=== PATIENT | female | born 1965 | race Caucasian/White ===

== ENCOUNTER → 2016-04-14 08:31 | Outpatient (CLI) | payer MEDICAID ==
[2015-12-01 12:31] VITALS: BMI 47.3
[~2016-04-14 08:31] MED LIST: ASPIRIN EC81 MG PO; ATIVAN1 MG PO; CIPROFLOXACIN750 MG PO; COREG6.25 MG PO; DILANTIN100 MG PO; GLUCOPHAGE1000 MG PO; GLUCOTROL 5 MG T5 MG PO; LANTUS INSULIN10 ML SC; NORCO 10/325 TA1 TA1 PO; PERCOCET 5-3251 TAB PO; ROBAXIN500 MG PO; TRULICITY0.75 MG/0. SC; TYLENOL #4 W/CO1 TAB PO; XANAX2 MG PO; ZESTORETIC 20/21 TAB PO
== END | disposition home or self-care (01) ==
LOC: D.CT 08:31
DX: R05 Cough (principal)

== ENCOUNTER → 2016-06-27 10:24 | Outpatient (CLI) | payer OTHER ==
[2015-12-01 12:31] VITALS: BMI 47.3
== END | disposition home or self-care (01) ==
LOC: D.RT 10:24
DX: Z02.71 Encounter for disability determination (principal)

== ENCOUNTER → 2017-07-25 08:14 | Outpatient (CLI) | payer MEDICAID ==
[2015-12-01 12:31] VITALS: BMI 47.3
== END | disposition home or self-care (01) ==
LOC: D.CT 08:14
DX: R10.9 Unspecified abdominal pain (principal)

== ENCOUNTER → 2018-07-06 09:04 | Outpatient (CLI) | payer MEDICAID ==
[2015-12-01 12:31] VITALS: BMI 47.3
== END | disposition home or self-care (01) ==
LOC: D.HCCARDIO 09:00
PROVIDERS: ATTEND Internal Medicine Cardiovascular Disease
DX: I25.119 Atherosclerotic heart disease of native coronary artery with unspecified angina pectoris (principal)

== ENCOUNTER 2018-07-19 06:59 | Outpatient (CLI) | payer MEDICAID ==
[~2018-07-19] VITALS: Ht 157.5 cm; Wt 115.0 kg
--- NOTE | ~2018-07-19 | HEMODYNAMI ---
PATIENT:ELI ABRAHAM MEDICAL RECORD: [id number] : 63 LOCATION:[facility] ADMISSION DATE: 07/19/18 Generatedon:07/19/201810:21 Patient name: ELI ABRAHAM Patient #: [id number] SSN: : 1965 Date of study: 07/19/2018 Page: Of Hemodynamic Procedure Report Patient Data Patient Demographics Procedure consent was obtained First Name: ELI Gender: Female Last Name: LEIGH : 1965 Middle Initial: GARRETT Age: 52 year(s) Patient #: [id number] Race: Additional ID: [id number] Contact details Address: [address] State: [place] City: [place] Zip code: [address] Past Medical History Allergies Allergen Reaction Date Comments Reported Other 12/01/2015 Dilaudid,PCN,Erythromycin,Z-Pack,Tramadol. allergy Admission Admission Data Admission Date: 07/19/2018 Admission Time: 6:59 Procedure Procedure Types Cath Procedure Diagnostic Procedure [facility] w/Coronaries Sedation Charges Moderate Sedation up to 15 minutes Procedure Description Procedure Date Procedure Date: 07/19/2018 Procedure Start Time: 10:02 Procedure End Time: 10:16 Procedure Staff Name Function Jaswinder Pike MD Performing Physician Tawana Roger RT Monitor Sal Schmitz RT Scrub Jr Streeter RN Nurse Procedure Data Cath Procedure Fluoroscopy Diagnostic fluoroscopy Total fluoroscopy Time: 1.9 time: 1.9 min min Diagnostic fluoroscopy Total fluoroscopy dose: 902 dose: 902 mGy mGy Contrast Material Contrast Material Type Amount (ml) Isovue 300 79 Entry Location Entry Primary Successful Side Size Upsize Upsize Entry Closure Succes sful Closure Location (Fr) 1 (Fr) 2 (Fr) Remarks Device Remarks Femoral Right 5 Fr Exoseal artery Estimated blood loss: 5 ml Diagnostic catheters Device Type Used For End Catheter Placement MULTIPACK JL 4.0 5Fr Left Coronary catheter Angiography MULTIPACK 3DRC 5Fr Right Coronary catheter Angiography MULTIPACK Pigtail 5 Fr LV Angiography catheter Procedure Complications No complications Procedure Medications Medication Administration Route Dosage 0.9% NaCl I.V. 100 ml/hr Oxygen etCO2 Nasal cannula 2 l/min Heparin Flush Bag added to field 2 bags (1000units/500ml NS) Lidocaine 2% added to field 20 Versed I.V. 1 mg Fentanyl I.V. 50 mcg Versed I.V. 1 mg Fentanyl I.V. 50 mcg Versed I.V. 1 mg Fentanyl I.V. 50 mcg Fentanyl I.V. 50 mcg Hemodynamics Rest Heart Rate: 91 (bpm) Pressure Samples Time Site Value (mmHg) Purpose Heart Use Rate(bpm) 10:13 LV 174/27,45 Snapshot 116 Gradients Valve Time Site Site Mean SEP/DFP Peak To Heart Use 1 2 (mmHg) (sec/min) Peak Rate (mmHg) (bpm) Aortic 10:14 LV AO 115 Snapshots Pre Cath Intra NCS Post Cath Vital Signs Time Heart Resp SPO2 etCO2 NIBP (mmHg) Rhythm Pain Sedation Rate (ipm) (%) (mmHg) Status Level (bpm) 9:47:10 100 13 93 0 131/80(110) NSR 0 (11) 10(A) , No pain 9:51:30 102 16 95 42.2 128/75(115) NSR 0 (11) 10(A) , No pain 9:58:18 106 13 94 43.7 129/78(114) NSR 0 (11) 10(A) , No pain 10:03:07 111 16 95 44.4 127/81(102) NSR 0 (11) 10(A) , No pain 10:07:19 111 26 98 42.2 127/77(103) NSR 0 (11) 10(A) , No pain 10:11:33 108 14 96 44.4 126/74(101) NSR 0 (11) 10(A) , No pain 10:15:47 116 15 96 46.6 132/69(84) NSR 0 (11) 10(A) , No pain Medications Time Medication Route Dose Verified Delivered Reason Notes Eff ectiveness by by 9:49:19 0.9% NaCl I.V. 100 Jr Jr Per ml/hr Syl raza RN RN 9:49:31 Oxygen etCO2 2 Jr Jr for low 02 Nasal l/min Lorigan Lorigan sats cannula RN RN 9:49:42 Heparin Flush added 2 Jr Jr used for Bag to bags Lorigan Lorigan procedure (1000units/500ml field RN RN NS) 9:49:52 Lidocaine 2% added 20ml Jr Jr for local to vial Lorigan Lorigan anesthetic field RN RN 9:50:02 Versed I.V. 1 mg Jr Jr for Lorigan Lorigan sedation RN RN 9:50:09 Fentanyl I.V. 50 Jr Jr for mcg Lorigan Lorigan sedation RN RN 9:57:38 Versed I.V. 1 mg Jr Jr for Lorigan Lorigan sedation RN RN 9:57:44 Fentanyl I.V. 50 Jr Jr for mcg Lorigan Lorigan sedation RN RN 10:06:03 Versed I.V. 1 mg Jr Jr for Lorigan Lorigan sedation RN RN 10:06:08 Fentanyl I.V. 50 Jr Jr for mcg Lorigan Lorigan sedation RN RN 10:17:22 Fentanyl I.V. 50 Jr Jr for mcg Lorigan Lorigan sedation RN yield improvement engineer Log Time Note 9:24:31 Diagnostic Cath Status : Elective 9:25:28 Sal Schmitz RT(R) sent for patient. Start room use. 9:25:29 Time tracking: Regular hours (M-F 7:00 - 5:00) 9:25:34 Plan of Care:Hemodynamics will remain stable., Cardiac rhythm will remain stable., Comfort level will be maintained., Respiratory function will remain adequate., Patient/ family verbilizes understanding of procedure., Procedure tolerated without complication., Recovers from procedure without complications.. 9:38:30 Patient received from Pre/Post Procedure Room to CCL 2 Alert and oriented. Tansferred to table in Supine position. 9:38:32 Warm blankets applied, and mundo hugger turned on for patient comfort. 9:38:32 Correct patient and procedure confirmed by team. 9:38:33 Signed procedure consent form obtained from patient. 9:38:34 ECG and BP/O2 sat monitors applied to patient. 9:46:00 Vital chart was started 9:46:02 Baseline sample Acquired. 9:46:07 Rhythm: sinus rhythm 9:46:08 Full Disclosure recording started 9:46:12 H&P Date Dictated: 07/19/2018 Within 30 days and on chart., H&P Addendum completed by physician on day of procedure. (MUST COMPLETE FOR ALL OUTPATIENTS). 9:46:14 Pre-procedure instructions explained to patient. 9:46:14 Pre-op teaching completed and patient verbalized understanding. 9:46:15 Family in waiting room. 9:46:18 Patient NPO since Midnight. 9:46:20 Is the patient allergic to Iodine/contrast media? No. 9:46:21 Was the patient premedicated? No 9:46:23 Is patient on blood thinner?No 9:46:24 Patient diabetic? Yes. 9:46:25 If diabetic: On Metformin? No 9:46:29 Previous problem with sedation/anesthesia? No ? 9:46:30 Snore? Yes 9:46:31 Sleep apnea? No 9:46:32 Deviated septum? No 9:46:33 Opens mouth fully? Yes 9:46:34 Sticks out tongue? Yes 9:46:38 Airway obstruction? Yes COPD 9:46:41 Dentures? No ? 9:46:44 Pre procedure: right dorsailis pedis pulse 2+ Normal; easily identifiable; not easily obliterated 9:46:46 Pre procedure: left dorsailis pedis pulse 2+ Normal; easily identifiable; not easily obliterated 9:46:55 Patient pain scale 0/10 ?. 9:47:04 IV patent on arrival in right antecubital with 0.9% NaCl at KVO. 9:47:07 Lab results completed and on chart. 9:47:11 Right groin area was prepped with chlora-prep and draped in sterile fashion 9:47:12 Alarms reviewed by R. N. 9:47:12 Sharps counted by scrub and verified by R.N. 9:47:13 Physician arrived 9:47:14 --------ALL STOP TIME OUT------ 9:47:14 Final Timeout: patient, procedure, and site verified with staff and physician. All members of the team are in agreement. 9:47:15 Right groin site verified by team. 9:47:19 Maximum allowable Isovue 300 dose 300ml. Physician notified. (300ml for normal creatinines. For patients with creatinine of 1.7 or higher multiply weight(kg) x 5 divided by creatinine.) 9:47:23 Fire Safety Assessment: A--An alcohol-based skin anteseptic being used preoperatively., C--Open oxygen or nitrous oxide is being used., D--An ESU, laser, or fiber-optic light is being used. 9:47:26 Physical assessment completed. ASA score P 2 - A patient with mild systemic disease as per Jaswinder Pike MD. 9:47:30 Sedation plan: IV Moderate Sedation Medication:Versed, Fentanyl 9:49:19 0.9% NaCl 100 ml/hr I.V. was administered by Jr Streeter RN; Per physician; 9:49:31 Oxygen 2 l/min etCO2 Nasal cannula was administered by Jr Streeter RN; for low 02 sats; 9:49:42 Heparin Flush Bag (1000units/500ml NS) 2 bags added to field was administered by Jr Streeter RN; used for procedure; 9:49:52 Lidocaine 2% 20ml vial added to field was administered by Jr Streeter RN; for local anesthetic; 9:50:02 Versed 1 mg I.V. was administered by Jr Streeter RN; for sedation; 9:50:09 Fentanyl 50 mcg I.V. was administered by Jr Streeter RN; for sedation; 9:52:55 Use device set Femoral Dx 9:52:56 ACIST Syringe (49782) opened to sterile field. 9:52:56 Bag Decanter () opened to sterile field. 9:52:57 Medline Cath Pack ([id number]) opened to sterile field. 9:52:57 DIAGNOSTIC WIRE .035 260cm J wire (036972) opened to sterile field. 9:52:58 ACIST Hand Control (90001) opened to sterile field. 9:52:59 ACIST Manifold (02266) opened to sterile field. 9:52:59 DIAGNOSTIC Multipack 5Fr catheter set ([id number]) opened to sterile field. 9:53:00 Tegaderm 4 x 4 (1626W) opened to sterile field. 9:53:00 SHEATH 5FR [place] ([id number]) opened to sterile field. 9:57:38 Versed 1 mg I.V. was administered by Jr Streeter RN; for sedation; 9:57:44 Fentanyl 50 mcg I.V. was administered by Jr Streeter RN; for sedation; 10:02:20 Procedure started. 10:02:24 Local anesthetic to right femoral artery with Lidocaine 2% by Jaswinder Pike MD.INITIAL ACCESS ONLY 10:02:35 A 5 Fr sheath was inserted into the Right Femoral artery 10:06:03 Versed 1 mg I.V. was administered by Jr Streeter RN; for sedation; 10:06:04 A MULTIPACK JL 4.0 5Fr catheter was advanced over the wire and used for Left Coronary Angiography. 10:06:08 Fentanyl 50 mcg I.V. was administered by Jr Streeter RN; for sedation; 10:06:52 LCA angiography performed. 10:06:55 Injector settings: Ml/sec: 3, Volume: 6, 10:10:21 Catheter removed. 10:10:31 A MULTIPACK 3DRC 5Fr catheter was advanced over the wire and used for Right Coronary Angiography. 10:10:41 RCA angiography performed. 10:10:44 Injector settings: Ml/sec: 3, Volume: 6, 10:12:17 Catheter removed. 10:12:29 A MULTIPACK Pigtail 5 Fr catheter was advanced over the wire and used for LV Angiography. 10:13:38 LV hemodynamics recorded. 10:13:39 LV gram done using NEWMAN 10:13:41 Injector settings: Ml/sec: 5, Volume: 15, 10:13:51 EF : 60 % 10:14:12 Catheter removed. 10:14:32 Sheath removed intact; hemostasis achieved with Exoseal to the Right Femoral artery. 10:14:36 Procedure ended.(Physican Out) 10:14:54 Fluoroscopy time 01.90 minutes. 10:14:59 Flurop Dose total: 902 10:14:59 Fluoroscopy dose: 902 mGy 10:15:08 Contrast amount:Isovue 300 79ml. 10:15:27 Sharps counted by scrub and verified by R.N. 10:15:28 Insertion/operative site no bleeding no hematoma. 10:15:31 Post-op/insertion site Right Femoral artery dressed using a 4 x 4 and Tegaderm. 10:15:34 Post right femoral artery:stable 10:15:36 Post Procedure Pulses reassessed and unchanged 10:15:39 Post procedure rhythm: unchanged. 10:15:42 Estimated blood loss: 5 ml 10:15:43 Post procedure instruction explained to patient.Patient verbalizes understanding. 10:15:43 Patient needs reinforcement of post procedure teaching. 10:16:01 Procedure type changed to Cath procedure, Diagnostic procedure, LHC, LHC w/Coronaries, Sedation Charges, Moderate Sedation up to 15 minutes 10:16:03 Procedure and supply charges have been captured, reviewed, submitted and are correct. 10:16:07 Procedure Complication : No complications 10:16:22 Vital chart was stopped 10:16:23 See physician's report for complete and final results. 10:16:40 Report given to Pre/Post Procedure Room. 10:16:43 Patient transfered to Pre/Post Procedure Room with Stretcher. 10:16:46 Procedure ended. 10:16:46 Full Disclosure recording stopped 10:16:50 End room use (Document Last) 10:17:22 Fentanyl 50 mcg I.V. was administered by Jr Streeter RN; for sedation; Device Usage Item Name Manufacture Quantity Catalog Hospital Part Current Minimal L ot# / Number Charge Number Stock Stock Serial# Code ACIST Acist 1 [id number] [id number] 432759 181227 20 Syringe Medical (05345) Systems Inc Bag Microtek 1 2001S 388716 83336 [id number] 5 Decanter Medical Inc. () Medline Medline 1 [id number] 720344 61767 468844 5 Cath Pack ([id number]) DIAGNOSTIC St Sandip 1 667767 521228 619889 411907 30 WIRE .035 260cm J wire (254368) ACIST Hand Acist 1 67360 988320 328927 410246 5 Control Medical (94112) Systems Inc ACIST Acist 1 37561 778243 507611 197206 5 Manifold Medical (34094) Systems Inc DIAGNOSTIC Cardinal 1 [id number] 023562 65001 791483 30 Multipack Health 5Fr catheter set (IY3348) Tegaderm 4 3M 1 1626W 432772 258763 563984 5 x 4 (1626W) SHEATH 5FR Terumo 1 [id number] 449294 624013 242782 5 [place] (NLV801) MULTIPACK Cardinal 1 [id number] 5 JL 4.0 5Fr Health catheter MULTIPACK Cardinal 1 268436 5 3DRC 5Fr Health catheter MULTIPACK Cardinal 1 488714 5 Pigtail 5 Health Fr catheter Signature Audit [place] Stage Time Signature Unsigned Intra-Procedure 07/19/2018 Tawana Roger 10:21:13 AM RT(R) Signatures Monitor : Tawana Roger RT Signature : Date : Time : [place] [id number] [place] [address]
[2018-07-19] MEDS ORDERED: VICTOZA0.6 MG/0.1 SQ (07:20)
[2018-07-19] MEDS ORDERED: HUMALOG 30100 UNITS/ SC (07:20)
[2018-07-19] MEDS ORDERED: PROAIR INH (07:21)
[2018-07-19 07:29] VITALS: BP 132/78; Ht 157.5 cm; Wt 115.0 kg
[2018-07-19 08:13] LABS: CALCIUM 9.6 mg/dL (8.5-10.1); CARBON DIOXIDE 30.1 mmol/L (21.0-32.0); CREATININE - SERUM 0.9 mg/dL (0.6-1.3); POTASSIUM - SERUM 4.1 mmol/L (3.5-5.1)
[2018-07-19 08:15] LABS: BASOPHILS 0.2 % (0-2); EOSINOPHILS 1.9 % (0-7); HEMATOCRIT 43.3 % (36.0-48.0); HEMOGLOBIN 14.9 g/dL (12-16); IMMATURE GRANULOCYTES 0.3 % (0-5); LYMPHOCYTES 30.4 % (15-50); MCH 29.4 pg (26.0-34.0); MCHC 34.4 g/dL (31.0-37.0); MCV 85.4 fL (80.0-100.0); MEAN PLATELET VOLUME 11.7 fL (7.4-10.4); MONOCYTES 8.4 % (2-11); NEUTROPHILS 58.8 % (40-80); PLATELET COUNT 156 10x3/uL (130-400); RBC 5.07 10x6/uL (4.00-5.40); RDW 13.5 % (11.5-14.5); WBC 8.9 10x3/uL (4.8-10.8)
--- NOTE | 2018-07-19 08:39 | NUR ---
DR MAR HAS BEEN NOTIFIED OF CRITICAL GLUCOSE OF 539, ORDER RECEIVED FOR HUMULIN R 10 UNITS QS NOW, AND THIS HAS BEEN GIVEN SQ TO RIGHT UPPER QUADRANT OF ABDOMEN.
--- NOTE | 2018-07-19 09:35 | NUR ---
BLOOD SUGAR RECHECKED, IS 482, HEATHER NAJERA HERE TO TRANSPORT PT TO CLIMBING GUIDE. STATES HE WILL NOTIFY DR MAR OF ELEVATED BLOOD SUGAR AND WILL RECHECK THIS IN CLIMBING GUIDE.
--- NOTE | 2018-07-19 11:13 | NUR ---
1050 PT SLEEPING, AWAKENS EASILY TO VERBAL STIMULI. DENIES ANY C/O. MALCOM PO FLUIDS WITH NO NAUSEA. DR MAR NOTIFIED OF FSBS 478, NEW ORDER RECEIVED. SINUS TACHYCARDIA, RATE OF 107, DENIES ANY C/O CHEST PAIN. DRESSING IS CDI TO RIGHT GROIN, AREA IS SOFT AND NONTENDER. PEDAL PULSES PALPABLE. HOB IS FLAT, AT BEDSIDE, CALL LIGHT IN REACH.
--- NOTE | 2018-07-19 11:27 | NUR ---
DRESSING CDI, PT IS AWAKE AND DENIES ANY C/O. PEDAL PULSES PALPABLE. HOB IS FLAT, VSS. AT BEDSIDE.
--- NOTE | 2018-07-19 12:02 | NUR ---
VSS, DRESSING CDI, RESP WITH EASE. PEDAL PULSES PALPABLE. DR MAR HAS ROUNDED, PT DENIES NEEDS AT THIS TIME.
--- NOTE | 2018-07-19 12:20 | NUR ---
FSBS 375, PT ALERT AND DENIES ANY C/O. DRESSING CDI, PULSES PALPABLE. PT HAS VOIDED QS USING BEDPAN. RESP WITH EASE ON ROOM AIR. HOB ELEVATED 30 DEGREES AND SANDWICH SERVED.
--- NOTE | 2018-07-19 12:36 | NUR ---
HOB ELEVATED FULLY, DRESSING CDI, PULSES PALPABLE. PT HAS MALCOM SANDWICH WITH NO C/O NAUSEA. VSS, CALL LIGHT IN REACH.
--- NOTE | 2018-07-19 13:42 | NUR ---
1305 DRESSING TO RIGHTR GROIN REMAINS CDI, AREA IS SOFT WITH NO HEMATOMA NOTED. PEDAL PULSES PALPABLE. NORMAL SINUS RHYTHM AT 96, BP IS 109/80, PT DENIES ANY C/O CHEST DISCOMFORT. DC INSTRUCTIONS REVIEWED WITH PT AND WHO VERBALIZE UNDERSTANDING. IV DC'D WITH CATH INTACT. 1320 ASSISTED PT INTO CHAIR, PT DRESSING FOR DC WITH ASSIST. 1330 PT DRESSED FOR DC TO HOME. IS ALERT AND DENIES ANY C/O. PT ESCORTED TO PRIVATE AUTO VIA WC BY NURSE WITH DRIVING HER HOME. PT HAS ALL PERSONAL BELONGINGS AND DC INSTRUCTIONS AT TIME OF DISCHARGE.
== END 2018-07-19 13:30 | disposition home or self-care (01) ==
LOC: D.CATH 06:59
PROVIDERS: ATTEND Internal Medicine Cardiovascular Disease
DX: I25.110 Atherosclerotic heart disease of native coronary artery with unstable angina pectoris (principal); T82.855A Stenosis of coronary artery stent, initial encounter; Z01.812 Encounter for preprocedural laboratory examination

== ENCOUNTER 2018-07-30 15:49 | Inpatient (IN) | payer MEDICAID ==
[~2018-07-30] VITALS: Ht 157.5 cm; Wt 122.8 kg
--- NOTE | ~2018-07-30 | HEMODYNAMI ---
PATIENT:ELI ABRAHAM MEDICAL RECORD: [id number] : 63 LOCATION:[facility] D.2107 ADMISSION DATE: 07/30/18 Generatedon:08/01/201811:11 Patient name: ELI ABRAHAM Patient #: [id number] SSN: : 1965 Date of study: 08/01/2018 Page: Of Hemodynamic Procedure Report Patient Data Patient Demographics Procedure consent was obtained First Name: ELI Gender: Female Last Name: LEIGH : 1965 [facility] Initial: GARRETT Age: 52 year(s) Patient #: [id number] Race: Additional ID: [id number] Contact details Address: [address] State: [place] City: [place] Zip code: [address] Past Medical History Allergies Allergen Reaction Date Comments Reported Other 12/01/2015 Dilaudid,PCN,Erythromycin,Z-Pack,Tramadol. allergy Admission Admission Data Admission Date: 07/30/2018 Admission Time: 21:40 Room #: D.2107 Height (in.): 61.81 BSA: 2.13 (m2) Height (cm.): 157 BMI: 47.87 (kg/m2) Weight (lbs.): 260.15 Weight (kg.): 118 Lab Results Lab Result Date: 08/01/2018 Lab Result Time: 0:00 Biochemistry Name Units Result Min Max BUN mg/dl 16 --(---*)-- 7 18 Creatinine mg/dl 0.8 --(-*--)-- 0.6 1.3 CBC Name Units Result Min Max Hematocrit % 38.8 *-(----)-- 42 54 Hemoglobin g/dl 13.3 -*(----)-- 13.5 17.5 Procedure Procedure Types Cath Procedure PCI Procedure Coronary Stent Coronary Stent Initial x2 Procedure Description Procedure Date Procedure Date: 08/01/2018 Procedure Start Time: 10:54 Procedure End Time: 11:10 Procedure Staff Name Function Radames Hanson MD Performing Physician Sal Schmitz RT Monitor Imelda Chow RN Nurse Janie Moon RT Scrub Procedure Data Cath Procedure Fluoroscopy Diagnostic fluoroscopy Total fluoroscopy Time: 4.8 time: 4.8 min min Diagnostic fluoroscopy Total fluoroscopy dose: 986 dose: 986 mGy mGy Contrast Material Contrast Material Type Amount (ml) Isovue 300 72 Entry Location Entry Primary Successful Side Size Upsize Upsize Entry Closure Succes sful Closure Location (Fr) 1 (Fr) 2 (Fr) Remarks Device Remarks Femoral Right 6 Fr Exoseal artery Short Estimated blood loss: 10 ml Procedure Complications No complications Procedure Medications Medication Administration Route Dosage 0.9% NaCl I.V. 100 ml/hr Oxygen etCO2 Nasal cannula 2 l/min Lidocaine 2% added to field 20 Heparin Flush Bag added to field 2 bags (1000units/500ml NS) Versed I.V. 2 mg Fentanyl I.V. 50 mcg Versed I.V. 2 mg Fentanyl I.V. 50 mcg Heparin Bolus I.V. 4000 units Hemodynamics Rest BSA: 2.13 (m2) HGB: 13.3 (g/dl) O2 Consumption: Estimated: 222.46 (ml/min) O2 Co nsumption indexed: Estimated:104.44 (ml/min/m) Heart Rate: 90 (bpm) Snapshots Pre Cath Intra NCS Post Cath Vital Signs Time Heart Resp SPO2 etCO2 NIBP (mmHg) Rhythm Pain Sedation Rate (ipm) (%) (mmHg) Status Level (bpm) 10:42:42 87 16 98 38 144/85(119) NSR 0 (11) 10(A) , No pain 10:47:04 86 14 97 34.3 150/85(122) NSR 0 (11) 10(A) , No pain 10:51:22 81 16 98 35.8 131/79(96) NSR 0 (11) 10(A) , No pain 10:55:44 80 10 97 17.9 122/69(98) NSR 0 (11) 10(A) , No pain 11:00:02 85 10 98 18.9 120/69(101) NSR 0 (11) 10(A) , No pain 11:04:19 85 12 97 36.6 126/77(107) NSR 0 (11) 10(A) , No pain 11:08:32 87 13 94 36.6 134/82(110) NSR 0 (11) 10(A) , No pain Medications Time Medication Route Dose Verified Delivered Reason Notes Effectiveness by by 10:41:02 0.9% NaCl I.V. 100 Radames Imelda used for ml/hr Valentin Chow steel finisher 10:41:09 Oxygen etCO2 2 Radames Imelda used for Nasal l/min Valentin Chow procedure cannula RN 10:41:15 Lidocaine 2% added 20ml Radames Radames for local to vial Valentin Hanson MD anesthetic field 10:41:20 Heparin Flush added 2 Radames Radames used for Bag to bags Valentin Hanson MD procedure (1000units/500ml field NS) 10:48:33 Versed I.V. 2 mg Radames Imelda for sedation Valentin Chow RN 10:48:42 Fentanyl I.V. 50 Radames Imelda for sedation mcg Valentin Chow RN 10:53:38 Versed I.V. 2 mg Radames Imelda for sedation Valentin Chow RN 10:53:41 Fentanyl I.V. 50 Radames Imelda for sedation mcg Valentin Chow RN 10:56:51 Heparin Bolus I.V. 4000 Radames Imelda for verif ied units Valentin Chow anticoagulation with Dr. COURTNEY Hanson Procedure Log Time Note 10:01:00 Signed procedure consent form obtained from patient. 10:01:02 Diagnostic Cath status Elective 10:01:03 Time tracking: Regular hours (M-F 7:00 - 5:00) 10:01:10 Plan of Care:Hemodynamics will remain stable., Cardiac rhythm will remain stable., Comfort level will be maintained., Respiratory function will remain adequate., Patient/ family verbilizes understanding of procedure., Procedure tolerated without complication., Recovers from procedure without complications.. 10:10:02 Sal CHISHOLM(R) sent for patient. Start room use. 10:17:02 Lab Result : BUN 16 mg/dl 10:17:02 Lab Result : Creatinine 0.8 mg/dl 10:17:02 Lab Result : Hematocrit 38.8 % 10:17:02 Lab Result : Hemoglobin 13.3 g/dl 10:17:12 Patient Weight : 260.15 lbs 10:17:19 Patient Height : 61.81 inches 10:33:52 Patient received from Med II to CCL 1 Alert and oriented. Tansferred to table in Supine position. 10:33:53 Warm blankets applied, and mundo hugger turned on for patient comfort. 10:33:53 Correct patient and procedure confirmed by team. 10:33:54 ECG and BP/O2 sat monitors applied to patient. 10:41:02 0.9% NaCl 100 ml/hr I.V. was administered by Imelda Chow RN; used for procedure; 10:41:09 Oxygen 2 l/min etCO2 Nasal cannula was administered by Imelda Chow RN; used for procedure; 10:41:15 Lidocaine 2% 20ml vial added to field was administered by Radames Hanson MD; for local anesthetic; 10:41:20 Heparin Flush Bag (1000units/500ml NS) 2 bags added to field was administered by Radames Hanson MD; used for procedure; 10:41:22 Vital chart was started 10:45:50 Baseline sample Acquired. 10:45:54 Rhythm: sinus rhythm 10:45:56 Full Disclosure recording started 10:46:19 H&P Date Dictated: 07/31/2018 Within 30 days and on chart., H&P Addendum completed by physician on day of procedure. (MUST COMPLETE FOR ALL OUTPATIENTS). 10:46:20 Pre-procedure instructions explained to patient. 10:46:20 Pre-op teaching completed and patient verbalized understanding. 10:46:24 Family in patients room. 10:46:31 Patient NPO since Midnight. 10:46:32 Is the patient allergic to Iodine/contrast media? No. 10:46:36 Is patient on blood thinner?Yes 10:46:46 ACC The patient was administered the following blood thiners within the last 24 hours: ACCPlavix 10:46:49 Patient diabetic? No. 10:46:51 Previous problem with sedation/anesthesia? No ? 10:46:52 Snore? Yes 10:46:53 Sleep apnea? No 10:46:54 Deviated septum? No 10:46:55 Opens mouth fully? Yes 10:46:56 Sticks out tongue? Yes 10:46:59 Airway obstruction? Yes COPD 10:47:03 Dentures? No ? 10:47:05 Pre procedure: right dorsailis pedis pulse 1+ Palpable, but thready & weak; easily obliterated 10:47:16 RADIAL PULSE TOO WEAK 10:47:18 Patient pain scale 0/10 ?. 10:47:21 IV patent on arrival in left forearm with 0.9% NaCl at [facility]. 10:47:23 Lab results completed and on chart. 10:47:26 Right groin area was prepped with chlora-prep and draped in sterile fashion 10:47:27 Alarms reviewed by R. N. 10:47:28 Sharps counted by scrub and verified by R.N. 10:47:29 --------ALL STOP TIME OUT------ 10:47:32 Final Timeout: patient, procedure, and site verified with staff and physician. All members of the team are in agreement. 10:47:34 Right groin site verified by team. 10:47:37 Maximum allowable Isovue 300 dose 300ml. Physician notified. (300ml for normal creatinines. For patients with creatinine of 1.7 or higher multiply weight(kg) x 5 divided by creatinine.) 10:47:42 Fire Safety Assessment: A--An alcohol-based skin anteseptic being used preoperatively., C--Open oxygen or nitrous oxide is being used., D--An ESU, laser, or fiber-optic light is being used. 10:47:44 Physical assessment completed. ASA score P 2 - A patient with mild systemic disease as per Radames Hanson MD. 10:47:47 Sedation plan: IV Moderate Sedation Medication:Versed, Fentanyl 10:48:33 Versed 2 mg I.V. was administered by Imelda Chow RN; for sedation; 10:48:42 Fentanyl 50 mcg I.V. was administered by Imelda Chow RN; for sedation; 10:53:38 Versed 2 mg I.V. was administered by Imelda Chow RN; for sedation; 10:53:41 Fentanyl 50 mcg I.V. was administered by Imelda Cohw RN; for sedation; 10:53:53 Use device set Radial Dx or PCI 10:53:56 Use device set TAUTH PCI 10:53:58 Procedure started. 10:54:03 Local anesthetic to right femoral artery with Lidocaine 2% by Radames Hanson MD.INITIAL ACCESS ONLY 10:55:39 A 6 Fr Short sheath was inserted into the Right Femoral artery 10:56:40 6 Fr AR 2 guide catheter was inserted over the wire 10:56:45 CPTXS wire advanced. 10:56:47 Wire advanced across lesion. 10:56:51 Heparin Bolus 4000 units I.V. was administered by Imelda Chow RN; for anticoagulation; verified with Dr. Hanson 10:57:06 Place stent Inflation Number: 1 A XOCHITL RX 2.25 x 18 stent ([id number]) was prepped and advanced across the 1st RPL. The stent was deployed at 13 KUSHAL for 0:10 (min:sec). 10:57:59 Stent catheter was removed intact over wire. 10:58:09 2ND CPTXS wire advanced. 10:58:30 2ND WIRE ADVANCED INTO THE RT PDA. 10:58:44 Tegaderm 4 x 4 (1626W) opened to sterile field. 10:58:45 ACIST Manifold (51155) opened to sterile field. 10:58:47 ACIST Hand Control (90751) opened to sterile field. 10:58:48 ACIST Syringe (64660) opened to sterile field. 10:58:48 Medline Cath Pack ([id number]) opened to sterile field. 10:58:49 Bag Decanter (2002) opened to sterile field. 10:58:50 DIAGNOSTIC WIRE .035 260cm J wire (772356) opened to sterile field. 10:58:51 INFLATOR Merit BasixCompak (WJ1134) opened to sterile field. 10:58:53 CHOICE PT Extra Support 182cm wire ([id number]) opened to sterile field. 10:58:55 GUIDE 6FR AR 2.0 catheter (LQ0FE60) opened to sterile field. 10:58:56 SHEATH 6FR Gallant (GNE822) opened to sterile field. 10:59:05 CHOICE PT Extra Support 182cm wire ([id number]) opened to sterile field. 11:00:04 Inflation number: 1 The stent balloon was then re-inflated across the R PDA to 9 KUSHAL for 0:10 (min:sec). 11:00:56 Stent catheter was removed intact over wire. 11:01:35 Place stent Inflation Number: 2 A XOCHITL RX 2.0 x 12 stent ([id number]) was prepped and advanced across the R PDA. The stent was deployed at 13 KUSHAL for 0:10 (min:sec). 11:02:00 Inflation number: 3 The stent balloon was then re-inflated across the R PDA to 7 KUSHAL for 0:10 (min:sec). 11:02:18 Stent catheter was removed intact over wire. 11:02:44 PDA WIRE REMOVED. 11:04:37 Inflation number: 2 The stent balloon was then re-inflated across the 1st RPL to 17 KUSHAL for 0:10 (min:sec). 11:05:04 Stent catheter was removed intact over wire. 11:05:38 Place stent Inflation Number: 3 A XOCHITL RX 2.25 x 15 stent ([id number]) was prepped and advanced across the 1st RPL. The stent was deployed at 13 KUSHAL for 0:10 (min:sec). 11:06:51 EXOSEAL 6Fr (EX600) opened to sterile field. 11:06:54 Stent catheter was removed intact over wire. 11:06:55 Wire removed. 11:06:56 Guide catheter removed. 11:07:05 Sheath removed intact; hemostasis achieved with Exoseal to the Right Femoral artery. 11:07:06 Procedure ended.(Physican Out) 11:08:33 Fluoroscopy time 04.80 minutes. 11:08:38 Flurop Dose total: 986 11:08:38 Fluoroscopy dose: 986 mGy 11:08:43 Contrast amount:Isovue 300 72ml. 11:08:44 Sharps counted by scrub and verified by R.N. 11:08:46 Insertion/operative site no bleeding no hematoma. 11:08:49 Post-op/insertion site Right Femoral artery dressed using a 4 x 4 and Tegaderm. 11:08:51 Post Procedure Pulses reassessed and unchanged 11:08:53 Post-procedure physical assessment completed. ASA score P 2 - A patient with mild systemic disease as per Radames Hanson MD. 11:08:56 Post procedure rhythm: unchanged. 11:08:59 Estimated blood loss: 10 ml 11:09:00 Post procedure instruction explained to patient.Patient verbalizes understanding. 11:09:01 Patient needs reinforcement of post procedure teaching. 11:09:28 Procedure type changed to Cath procedure, PCI procedure, Coronary Stent, Coronary Stent Initial x2 11:09:29 Procedure and supply charges have been captured, reviewed, submitted and are correct. 11:09:32 Procedure Complication : No complications 11:10:00 Vital chart was stopped 11:10:01 See physician's report for complete and final results. 11:10:03 Report given to PCU. 11:10:19 Patient transfered to PCU with Bed. 11:10:21 Procedure ended. 11:10:21 Full Disclosure recording stopped 11:10:34 End room use (Document Last) Intervention Summary Intervention Notes Time ActionType Lesion and Equipment Used Action# Pressure Duration Attributes 10:57:06 Place stent 1st RPL XOCHITL RX 2.25 x 1 13 00:10 18 stent ([id number]) 11:00:04 Reinflate R PDA XOCHITL RX 2.25 x 1 9 00:10 stent 18 stent balloon ([id number]) 11:01:35 Place stent R PDA XOCHITL RX 2.0 x 2 13 00:10 12 stent ([id number]) 11:02:00 Reinflate R PDA XOCHITL RX 2.0 x 3 7 00:10 stent 12 stent balloon ([id number]) 11:04:37 Reinflate 1st RPL XOCHITL RX 2.0 x 2 17 00:10 stent 12 stent balloon ([id number]) 11:05:38 Place stent 1st RPL XOCHITL RX 2.25 x 3 13 00:10 15 stent ([id number]) Device Usage Item Name Manufacture Quantity Catalog Number Hospital Part Current M inimal Lot# / Charge Number Stock Stock Serial# Code XOCHITL RX 2.25 x Medtronic 1 [id number] 090808 2857794 415399 5 [id number] 18 stent ([id number]) Tegaderm 4 x 4 3M 1 1626W 648133 139964 040183 5 (1626W) ACIST Manifold Acist 1 15519 429517 967019 692563 5 (03285) Medical Systems Inc ACIST Hand Acist 1 98025 690535 958948 774837 5 Control Medical (39130) Systems Inc ACIST Syringe Acist 1 29961 979371 845034 469084 2 0 (22104) Medical Systems Inc Medline Cath Medline 1 [id number] 783127 56162 999112 5 Pack ([id number]) Bag Decanter Microtek 1 2001S 864368 52352 376828 5 (2001S) Medical Inc. DIAGNOSTIC St Sandip 1 734819 826588 574376 172731 3 0 WIRE .035 260cm J wire (599221) INFLATOR Merit Merit 1 GE7566 441915 247253 604305 1 5 [employer] Medical (GR3973) CHOICE PT Mcnabb 2 [id number] 926232 427958 228248 5 Extra Support Scientific 182cm wire ([id number]) GUIDE 6FR AR Medtronic 1 [id number] 968129 39342 992238 1 2.0 catheter (UO5SW00) SHEATH 6FR Terumo 1 JIA128 943823 535917 830883 4 0 Gallant (UFF188) XOCHITL RX 2.0 x Medtronic 1 [id number] 574880 0481850 825209 5 [id number] 12 stent ([id number]) XOCHITL RX 2.25 x Medtronic 1 [id number] 987256 1080818 379143 5 [id number] 15 stent ([id number]) EXOSEAL 6Fr Cardinal 1 EX600 217879 060024 079427 1 0 (EX600) Health Signature Audit [place] Stage Time Signature Unsigned Intra-Procedure 08/01/2018 Sal Schmitz 11:11:34 AM RT(R) Signatures Monitor : Sal Schmitz RT Signature : Date : Time : [facility] [address] [place] [address]
--- NOTE | ~2018-07-30 | CN ---
PATIENT NAME:ELI ABRAHAM MEDICAL RECORD: [id number] : 63 LOCATION:D.M2 D.2107 ADMIT DATE: 07/30/18 ACCOUNT: [id number] CONSULTING PHYSICIAN: JANINA BONE MD REFERRING PHYSICIAN: SANJIV CASTANON MD DATE OF CONSULTATION: 07/31/2018 CARDIOLOGY CONSULTATION DIAGNOSES: 1. Unstable angina. 2. Coronary artery disease. 3. Hypertension. 4. Insulin-dependent diabetes. 5. Obesity. HISTORY OF PRESENT ILLNESS: Ms. Abraham presents with chest pain, nausea, vomiting, and abdominal pain. She recently underwent cardiac catheterization by Dr. Pike revealing 3-vessel coronary artery disease. She was being referred for bypass surgery. She has not seen Dr. Varghese and she does not want to proceed with bypass surgery. She asks for multivessel stenting. I have reviewed the film and this is possible. PHYSICAL EXAMINATION: GENERAL APPEARANCE: Well-nourished, well-developed, appears stated age. Level of distress, comfortable. PSYCHIATRIC: Mental status, alert, normal affect. Orientation, oriented to time, place and person. EYES: Lids and conjunctiva, noninjected. No discharge, no pallor. ENT: Lips, teeth, gums, normal dentition. Oropharynx, no cyanosis, no pallor. NECK: Carotid arteries, bilateral normal upstroke, no bruits, no thrills. JUGULAR VEINS: No jugular venous pressure or distention. CERVICAL LYMPH NODES: Nontender, nonenlarged. THYROID: Not enlarged. Nontender. No nodules. LUNGS: Respiratory effort, unlabored. CHEST: Normal curvature. No thoracic deformity. No chest wall tenderness. Percussion, resonant. Auscultation, clear. No wheezes, no rales, no rhonchi. CARDIOVASCULAR: Precordial exam, nondisplaced. No heaves or pericardial thrills. Rate and rhythm, regular. Heart sounds, normal S1, normal S2. No S3, no gallop, no rub. Systolic murmur, not heard. Diastolic murmur, not heard. EXTREMITIES: No cyanosis, no edema. Peripheral pulses, full and equal in all extremities, except as noted. No bruits appreciated. ABDOMEN: Soft, nondistended. Normal aorta. No bruit. Nontender. No masses. Liver, nontender, no hepatomegaly. Spleen, nontender, no splenomegaly. MUSCULOSKELETAL: No joint tenderness. No joint swelling. No erythema. NEUROLOGICAL: Normal gait, normal strength, normal tone. SKIN: Warm and dry. OVERALL IMPRESSION: Anginal symptomatology with 3-vessel coronary artery disease. It is amenable to multivessel PTCA and stent. We will proceed with PTCA and of the RCA in the a.m. TRANSINT:[id number] Voice Confirmation ID: [id number] DOCUMENT ID: [id number] CONSULT REPORT [id number] ELI ABRAHAM JEFFREY MD CC: [id number] DICTATION DATE: 07/31/18 1305 TYPEWRITERS FUNCTIONAL TESTER: 07/31/18 1317 ADM IN [facility] [address] [id number]
--- NOTE | ~2018-07-30 | OP ---
PATIENT NAME: ELI ABRAHAM MEDICAL RECORD: [id number] :63 LOCATION:D.M2 D.2107 ADMISSION DATE:07/30/18 SURGEON: JANINA BONE MD DATE OF OPERATION: 08/01/2018 PROCEDURES: 1. PTCA and stents, RCA PDA and PLV. 2. Selective coronary angiography. INDICATION: Angina and coronary artery disease. PROCEDURE IN DETAIL: After informed consent was obtained with detailed description of risks and benefits as well as alternative therapies, the patient elected to proceed with angiogram and angioplasty. The right femoral area was prepped and draped in normal sterile fashion. The right femoral artery was cannulated via modified Seldinger technique with placement of 6-Swedish sheath. All catheters were exchanged through this sheath. FINDINGS: The PDA and PLV are both 90% stenosed. PDA was addressed with a 2.0 x 12 mm [place] and PLV with 2.25 and 15 and 18 mm Campos. Result was 0% residual stenosis. OVERALL IMPRESSION: Successful PTCA stent of RCA PDA and PLV, both going from 90% initial stenosis to 0% residual. TRANSINT:[id number] Voice Confirmation ID: [id number] DOCUMENT ID: [id number] JANINA BONE MD CC: [id number] DICTATION DATE: 08/01/18 1112 SCANNER SUPERVISOR: 08/01/18 1426 ADM IN [place] [address] [place] [address]
[~2018-07-30 15:49] MED LIST changes: +HUMALOG 30100 UNITS/ SC; +PROAIR INH; +VICTOZA0.6 MG/0.1 SQ
[2018-07-30 16:47] LABS: BASOPHILS 0.2 % (0-2); EOSINOPHILS 1.3 % (0-7); HEMATOCRIT 41.7 % (36.0-48.0); HEMOGLOBIN 14.6 g/dL (12-16); IMMATURE GRANULOCYTES 0.4 % (0-5); LYMPHOCYTES 15.8 % (15-50); MCV 85.6 fL (80.0-100.0); MEAN PLATELET VOLUME 11.4 fL (7.4-10.4); MONOCYTES 6.4 % (2-11); NEUTROPHILS 75.9 % (40-80); PLATELET COUNT 167 10x3/uL (130-400); RBC 4.87 10x6/uL (4.00-5.40); RDW 13.1 % (11.5-14.5); WBC 13.7 10x3/uL (4.8-10.8)
[2018-07-30 17:15] LABS: ALBUMIN 3.3 g/dL (3.4-5.0); ALKALINE PHOSPHATASE 103 U/L (46-116); ALT (SGPT) 67 U/L (10-68); BILIRUBIN - TOTAL 0.59 mg/dL (0.2-1.3); CALC OSMOLALITY 279 mosm/kg (275-300); CALCIUM 9.5 mg/dL (8.5-10.1); CARBON DIOXIDE 26.5 mmol/L (21.0-32.0); CHLORIDE - SERUM 96 mmol/L (98-107); CREATININE - SERUM 1.1 mg/dL (0.6-1.3); SODIUM 130 mmol/L (136-145); UREA NITROGEN 20 mg/dL (7-18); eGFR NON AFRICAN AMERICAN 55 mL/min (90-120)
[2018-07-30 17:20] LABS: GLUCOSE 395 mg/dL (74-106)
[2018-07-30 17:26] LABS: AMYLASE - SERUM 38 U/L (25-115); CKMB 0.8 U/L (0.0-3.6); CREATINE KINASE 45 UL (21-215); LIPASE 188 U/L (73-393); TROPONIN-I < 0.017 ng/mL (0.000-0.060)
--- NOTE | 2018-07-30 18:57 | NUR ---
BEDSIDE REPORT HANDED OFF FROM VANIA Youssef RN VIA SBAR. Analia MCKEON AT BEDSIDE STARTING IV.
--- NOTE | 2018-07-30 19:05 | NUR ---
PT TO CT VIA STRETCHER.
[2018-07-30 19:30] VITALS: BP 125/79
--- NOTE | 2018-07-30 20:00 | NUR ---
PT STABLE CALL LIGHT WITHIN REACH, WILL CONTINUE TO MONITOR.
[2018-07-30 21:53] VITALS: BP 125/79
--- NOTE | 2018-07-30 22:00 | NUR ---
PT STABLE, FAMILY AT BEDSIDE, CALL LIGHT WITHIN REACH, WILL CONTINUE TO MONITOR.
[2018-07-30 23:00] VITALS: BP 141/63
[2018-07-30 23:14] LABS: CKMB 1.5 U/L (0.0-3.6); CREATINE KINASE 45 UL (21-215)
[2018-07-30 23:15] LABS: TROPONIN-I < 0.017 ng/mL (0.000-0.060)
[2018-07-31] VITALS (8 sets, daily range): BP systolic 102–136; BP diastolic 59–79; Ht 157.5 cm; Wt 122.8 kg
--- NOTE | 2018-07-31 00:02 | NUR ---
REPORT CALLED TO DAMIAN, FLOOR NURSE AT THIS TIME.
[2018-07-31 00:20] LABS: APPEARANCE CLEAR (CLEAR); BILIRUBIN NEGATIVE (NEGATIVE); COLOR YELLOW (YELLOW); GLUCOSE 1000 mg/dL (NEGATIVE); KETONE NEGATIVE (NEGATIVE); NITRITE NEGATIVE (NEGATIVE); PROTEIN NEGATIVE (NEGATIVE); UROBILINOGEN NORMAL (NORMAL)
--- NOTE | 2018-07-31 03:38 | NUR ---
ADMISSION ASSESSMENT COMPLETED. PT RESTING IN BED. NO DISTRESS.
[2018-07-31 05:46] LABS: BASOPHILS 0.1 % (0-2); EOSINOPHILS 3.3 % (0-7); HEMATOCRIT 38.8 % (36.0-48.0); HEMOGLOBIN 13.3 g/dL (12-16); IMMATURE GRANULOCYTES 0.3 % (0-5); LYMPHOCYTES 32.8 % (15-50); MCH 29.3 pg (26.0-34.0); MCHC 34.3 g/dL (31.0-37.0); MCV 85.5 fL (80.0-100.0); MEAN PLATELET VOLUME 11.6 fL (7.4-10.4); MONOCYTES 7.9 % (2-11); NEUTROPHILS 55.6 % (40-80); PLATELET COUNT 145 10x3/uL (130-400); RBC 4.54 10x6/uL (4.00-5.40); RDW 13.4 % (11.5-14.5)
[2018-07-31 06:45] LABS: ALBUMIN 2.6 g/dL (3.4-5.0); ALKALINE PHOSPHATASE 77 U/L (46-116); BILIRUBIN - TOTAL 0.62 mg/dL (0.2-1.3); CALCIUM 8.7 mg/dL (8.5-10.1); CARBON DIOXIDE 28.6 mmol/L (21.0-32.0); CHLORIDE - SERUM 101 mmol/L (98-107); CKMB 1.5 U/L (0.0-3.6); CREATINE KINASE 38 UL (21-215); POTASSIUM - SERUM 3.6 mmol/L (3.5-5.1); PROTEIN - SERUM 6.6 g/dL (6.4-8.2); SODIUM 136 mmol/L (136-145); TROPONIN-I < 0.017 ng/mL (0.000-0.060); UREA NITROGEN 16 mg/dL (7-18)
[2018-07-31 06:55] LABS: ALT (SGPT) 49 U/L (10-68); CALC OSMOLALITY 279 mosm/kg (275-300); CREATININE - SERUM 0.8 mg/dL (0.6-1.3); GLUCOSE 230 mg/dL (74-106); eGFR NON AFRICAN AMERICAN 79 mL/min (90-120)
[2018-07-31 06:56] LABS: WBC 7.5 10x3/uL (4.8-10.8)
--- NOTE | 2018-07-31 07:38 | NUR ---
ROUNDING DONE WITH NIGHT NURSE, PATIENT COMPLAINING OF PAIN TO ABDOMINAL AREA. NORCO GIVEN. ON HEART MONITOR SHOWING SR, HR 87. LEFT FA PIV SEEN WITH NS INFUSING AT 125 CC/HR. OBESE. DENIES ANY FURTHER NEEDS AT THIS TIME.
--- NOTE | 2018-07-31 10:51 | NUR ---
REFUSES SCD'S SHE IS UP AND DOWN TO RESTROOM.
[2018-07-31 11:52] LABS: CKMB 1.9 U/L (0.0-3.6); CREATINE KINASE 39 UL (21-215); TROPONIN-I < 0.017 ng/mL (0.000-0.060)
--- NOTE | 2018-07-31 12:17 | NUR ---
DONITA NORIEGA APN ON FLOOR AND CONCERNS ARE VOICED TO HER R/T PAST HEART HISTORY AND DR SCOTT. NEW ORDERS.
--- NOTE | 2018-07-31 14:51 | NUR ---
PERMITS ARE SIGNED FOR HEART CATH FOR TOMORROW. PATIENT IS MADE AWARE OF NPOPAST MIDNIGHT STATUS.
--- NOTE | 2018-07-31 16:19 | NUR ---
I CALLED DONITA NORIEGA APN R/T BLOOD PRESSURE OF 115/62. WE ARE TO HOLD THE HCTZ AND ZESTERIL TODAY. TO GIVE COREG FOR HR 91.
--- NOTE | 2018-07-31 20:22 | NUR ---
ROUNDS COMPLETED. VSS, AAOX3. FAMILY AT BEDSIDE. PT NPO FOR POSSIBLE HEART CATH TOMORROW. ON 2L NC. LFA PIV NS @125. PT CURRENLTY SITTING ON THE EDGE OF THE BED. DENIES ANY FURTHER NEEDS AT THIS TIME. CL IN REACH, BED IN LOW, SR UP X2. WILL CPOC.
[2018-08-01 05:33] LABS: BASOPHILS 0.2 % (0-2); EOSINOPHILS 3.3 % (0-7); HEMATOCRIT 37.2 % (36.0-48.0); HEMOGLOBIN 12.7 g/dL (12-16); IMMATURE GRANULOCYTES 0.2 % (0-5); LYMPHOCYTES 33.8 % (15-50); MCH 29.5 pg (26.0-34.0); MCHC 34.1 g/dL (31.0-37.0); MCV 86.3 fL (80.0-100.0); MEAN PLATELET VOLUME 11.2 fL (7.4-10.4); MONOCYTES 6.3 % (2-11); NEUTROPHILS 56.2 % (40-80); PLATELET COUNT 131 10x3/uL (130-400); RBC 4.31 10x6/uL (4.00-5.40); RDW 13.3 % (11.5-14.5)
[2018-08-01 05:42] LABS: WBC 5.4 10x3/uL (4.8-10.8)
[2018-08-01 06:01] LABS: CALC OSMOLALITY 280 mosm/kg (275-300); CALCIUM 8.4 mg/dL (8.5-10.1); CARBON DIOXIDE 27.2 mmol/L (21.0-32.0); CHLORIDE - SERUM 106 mmol/L (98-107); CHOL - HDL RATIO 4.9 ratio (2.3-4.1); CHOLESTEROL, TOTAL 147 mg/dL (0-200); CREATININE - SERUM 0.6 mg/dL (0.6-1.3); GLUCOSE 189 mg/dL (74-106); HDL CHOLESTEROL 30 mg/dL (32-96); LDL CHOLESTEROL 94 mg/dL (0-100); LDL-HDL RATIO 3.1 ratio (1.5-3.5); POTASSIUM - SERUM 3.8 mmol/L (3.5-5.1); SODIUM 139 mmol/L (136-145); TRIGLYCERIDE 116 mg/dL (30-200); eGFR NON AFRICAN AMERICAN > 90 mL/min (90-120)
[2018-08-01 06:06] LABS: UREA NITROGEN 8 mg/dL (7-18)
[2018-08-01 06:16] VITALS: BP 124/64
--- NOTE | 2018-08-01 07:10 | NUR ---
REPORT RECEIVED FROM BALLING HEAD TENDER AND PATIENT CARE ASSUMED. VSS. PATIENT DENEIS ANY NEEDS OR PAIN. PATIENT IS NPO AWAITNG HEART CATH. OF BEDSIDE. WILL CONTINUE WITH PLAN OF CARE.
--- NOTE | 2018-08-01 07:40 | NUR ---
RECIEVED PHONE CALL FROM BANKRUPTCY LAW SPECIALIST FOR PRE OP. PATIENT PREOP PER EMAR. PATIENT IS STABLE AND VSS. AT BEDSIDE. SR UP X 2 BED IN LOW POSTION AND CALL LIGHT IN REACH.
[2018-08-01 08:24] VITALS: BP 125/76
--- NOTE | 2018-08-01 10:00 | NUR ---
PATIENT TO LOADING MACHINE OPERATOR VIA LOADING MACHINE OPERATOR TEAM IN HOSPITAL BED. PATIENT IS STABLE AND VSS.
--- NOTE | 2018-08-01 11:45 | NUR ---
PATIENT RETURNED FROM COLLEGE ADVISOR VIA HOSPITAL BED AND COLLEGE ADVISOR TEAM. PATIENT HAS RT GROIN DRESSING C/D/I. PATIENT IS SLEEPY. AROUSE EASILY TO VOICE. PATIENT IS STABLE AND VSS. PATIENT DENIES ANY PAIN OR NEEDS. AT BEDSIDE. WILL CONTINUE TO MONITOR.
--- NOTE | 2018-08-01 12:30 | NUR ---
PATIENT RESTING COMFORTABLY IN BED WITH EYES CLOSED AND BREATHING EVENLY. PATIENT REMAIN FLAT ON BACK RT GROIN DRSG C/D/I. AT BEDISDE. WILL CONTINUE TO MONITOR.
--- NOTE | 2018-08-01 13:30 | NUR ---
PATIENT REMAINS FLAT ON BACK WITH BOTH LEGS STRAIGHT. DRSG TO RT GROIN C/D/I. NO SIGNS OF BLEEDING, BRUISING OR HEMATOMA. PATIENT DENIES ANY PAIN OR NEEDS. VSS. WILL CONTINUE TO MONITOR. SR UP X 2 BED IN LOW POSTION AND CALL LIGHT IN REACH.
[2018-08-01 15:23] VITALS: BP 137/74
--- NOTE | 2018-08-01 16:40 | NUR ---
PATIENT AWAKE, ALERT AND STABLE. PATIENT CONTINUES TO LAY FLAT WITH BOTH LEGS STRAIGHT. RT GROIN DRSG C/D/I. WILL CONTINUE TO MONITOR. SR UP X 2 BED IN LOW POSTION AND CALL LIGHT IN REACH.
--- NOTE | 2018-08-01 17:00 | NUR ---
PATIENT IS STABLE AND VSS. DRSG TO RT GROIN C.D/I. NO SIGNS OF BLEEDING, BRUISING OR HEMATOMA. PATIENT NOW SITTING UP IN BED. FAMILY AT BEDSIDE. WILL CONTINUE TO MONITOR.
--- NOTE | 2018-08-01 18:30 | NUR ---
PATIENT SITTING UP IN BEDSIDE CHAIR. RT GROIN DRSG C/D/I. NO BLEEDING, BRUISING OR HEMATOMA NOTED. PATIENT IS STABLE AND VSS. PATIENT DENIES ANY NEEDS OR PAIN. CALL LIGHT IN REACH. AT BEDSIDE.
[2018-08-01 20:00] VITALS: BP 122/69
--- NOTE | 2018-08-01 20:30 | NUR ---
RESUMING PT CARE. PT IS ALERT LAYING IN BED. NO C/O VOICED. NO S/S OF DISTRESS NOTED. BED IN LOW POSITION WITH CALL LIGHT IN REACH. WILL CONTINUE TO MONITOR PT AND FOLLOW PLAN OF CARE.
[2018-08-02] VITALS: BP 131/55
[2018-08-02 04:00] VITALS: BP 126/80
--- NOTE | 2018-08-02 05:11 | NUR ---
I have reviewed this patient and I concur with the Shift Assessment completed by the Licensed Practical Nurse today this shift.
[2018-08-02 05:53] LABS: BASOPHILS 0.2 % (0-2); EOSINOPHILS 2.8 % (0-7); HEMATOCRIT 38.2 % (36.0-48.0); HEMOGLOBIN 12.9 g/dL (12-16); IMMATURE GRANULOCYTES 0.2 % (0-5); LYMPHOCYTES 33.1 % (15-50); MCH 29.1 pg (26.0-34.0); MCHC 33.8 g/dL (31.0-37.0); MCV 86.2 fL (80.0-100.0); MEAN PLATELET VOLUME 11.2 fL (7.4-10.4); NEUTROPHILS 58.7 % (40-80); PLATELET COUNT 147 10x3/uL (130-400); RBC 4.43 10x6/uL (4.00-5.40); RDW 13.5 % (11.5-14.5); WBC 6.4 10x3/uL (4.8-10.8)
[2018-08-02 06:10] LABS: CALC OSMOLALITY 285 mosm/kg (275-300); CALCIUM 8.5 mg/dL (8.5-10.1); CARBON DIOXIDE 29.2 mmol/L (21.0-32.0); CHLORIDE - SERUM 105 mmol/L (98-107); CREATININE - SERUM 0.7 mg/dL (0.6-1.3); GLUCOSE 302 mg/dL (74-106); POTASSIUM - SERUM 3.9 mmol/L (3.5-5.1); SODIUM 138 mmol/L (136-145); UREA NITROGEN 11 mg/dL (7-18); eGFR NON AFRICAN AMERICAN > 90 mL/min (90-120)
[2018-08-02 08:00] VITALS: BP 155/72
--- NOTE | 2018-08-02 08:53 | NUR ---
Nutrition Follow Up: Education provided on carbohydrate counting. Recommended pt start eating 3 meals per day with 30-45gm CHO each meal. Recommend pt always pair carbohydrate with protein. Discussed portions sizes of carboyhdrate containing foods and encouraged pt to measure portions. Encouraged lots of non-starchy vegetables. Encouraged lean meat. Pt reports she is working with a dietitian on an outpatient basis. RD following
[2018-08-02] MEDS ORDERED: PLAVIX75 MG PO (11:51)
[2018-08-02] MEDS ORDERED: LEVAQUIN750 MG PO (11:51)
[2018-08-02] MEDS ORDERED: FLAGYL500 MG PO (11:51)
[2018-08-02] MEDS ORDERED: HYDROCODON-ACE1 EA10 PO (12:51)
--- NOTE | 2018-08-02 13:18 | MORECARE ---
CASE MANAGEMENT DISCHARGE SUMMARY PATIENT: ELI ABRAHAM GARRETT UNIT: [id number] ADM DATE: 07/30/18 AGE: 52 : 63 SEX: F ROOM/BED: D.2107 AUTHOR: HORTENCIA BERMUDEZ PHYSICIAN: REFERRING PHYSICIAN: SANJIV CASTANON MD DATE OF SERVICE: 08/02/18 Discharge Plan Patient Name: ELI ABRAHAM [facility] : 1965 Planned Disposition: Home Anticipated Discharge Date: 08/02/18 Discharge Date: Expected LOS: 3 Initial Reviewer: [email or web address] Initial Review Date: 07/30/2018 Generated: 08/02/18 2:18 pm DCPIA - Discharge Planning Initial Assessment Updated by [email or web address]: Phillip Rebolledo on 08/02/18 1:13 pm * Is the patient Alert and Oriented? Yes * How many steps to enter\exit or inside your home? * PCP DR. ALVARES * Pharmacy [facility] * Preadmission Environment Home with Family * ADLs Independent * Equipment Cane Glucometer Other Walker * Other Equipment IN[employer]ENCE SUPPLILES PREFERRED MEDICAL EQUIPMENT PROVIDER - [employer] * List name and contact numbers for known caregivers / representatives who currently or will assist patient after discharge: GIANA ABRAHAM, SPOUSE, * Verbal permission to speak to the caregivers and representatives has been obtained from the patient. Yes * Community resources currently utilized None * Please name any agencies selected above. NONE * Additional services required to return to the preadmission environment? No * Can the patient safely return to the preadmission environment? Yes * Has this patient been hospitalized within the prior 30 days at any hospital? No Patient Name: ELI ABRAHAM Page [id number] at 1318 All edits/amendments must be made on the electronic document DICTATION DATE: 08/02/181317 ASSEMBLY OPERATOR: CHRISTIAN 08/02/181317 RPT#: [id number] DC DATE: STATUS: ADM IN [facility] [address] [place] [address] END OF REPORT
--- NOTE | 2018-08-02 13:27 | MORECARE ---
CASE MANAGEMENT DISCHARGE SUMMARY PATIENT: ELI ABRAHAM UNIT: [id number] ADM DATE: 07/30/18 AGE: 52 : 63 SEX: F ROOM/BED: D.9762 AUTHOR: AIDAN,DOC PHYSICIAN: REFERRING PHYSICIAN: SANJIV CASTANON MD DATE OF SERVICE: 08/02/18 Discharge Plan Patient Name: ELI ABRAHAM Facility: [facility]:[place] : 1965 Planned Disposition: Home Anticipated Discharge Date: 08/02/18 Discharge Date: Expected LOS: 3 Initial Reviewer: [email or web address] Initial Review Date: 07/30/2018 Generated: 08/02/18 2:27 pm Comments DCP- Discharge Planning Updated by [email or web address]: Phillip Rebolledo on 08/02/18 12:[address] Patient Name: ELI ABRAHAM Admission Status: ER Accout number: [id number] Admission Date: 07-30-2018 : 1965 Admission Diagnosis:CHEST PAIN, UNSPECIFIED Attending: SANJIV CASTANON Current LOS: 3 Anticipated DC Date: 08-02-2018 Planned Disposition: Home Primary Insurance: [place]ICAID [place] Discharge Planning Comments: CM MET WITH PT AND SPOUSE IN ROOM TO DISCUSS DISCHARGE PLANNING AND NEEDS. ELI ABRAHAM provided verbal consent to discuss current and ongoing needs with/in the presence of: SPOUSE, GIANA. PT REPORTS LIVING AT HOME INDEPENDENTLY WITH HER SPOUSE. PT HAS CANE, GLUCOMETER AND WALKER FROM [facility]. PT ALSO RECEIVES IN[employer] SUPPLIES MAIL ORDER. 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 PT HAS NO OUTSIDE SERVICES ASSISTING IN THE HOME. CM DISCUSSED AVAILABILITY OF HOME HEALTH, REHAB SERVICES AND MEDICAL EQUIPMENT. PT DENIES DISCHARGE NEEDS, REPORTS HER SPOUSE WILL PICK HER UP FOR DISCHARGE HOME. TRANSFORMER INSPECTOR NURSE NOTIFIED. Chief Nursing Executive: Phillip Rebolledo DCPIA - Discharge Planning Initial Assessment Updated by [email or web address]: Phillip Rebolledo on 08/02/18 1:13 pm * Is the patient Alert and Oriented? Yes * How many steps to enter\exit or inside your home? * PCP DR. ALVARES * Pharmacy [facility] * Preadmission Environment Home with Family * ADLs Independent * Equipment Cane Glucometer Other Walker * Other Equipment [employer] SUPPLILES PREFERRED MEDICAL EQUIPMENT PROVIDER - [employer] * List name and contact numbers for known caregivers / representatives who currently or will assist patient after discharge: GIANA ABRAHAM, SPOUSE, * Verbal permission to speak to the caregivers and representatives has been obtained from the patient. Yes * Community resources currently utilized None * Please name any agencies selected above. NONE * Additional services required to return to the preadmission environment? No * Can the patient safely return to the preadmission environment? Yes * Has this patient been hospitalized within the prior 30 days at any hospital? No Last DP export: 08/02/18 12:18 p Patient Name: ELI ABRAHAM Page [phone] at 1327 All edits/amendments must be made on the electronic document DICTATION DATE: 08/02/18 1326 ASSEMBLY CLEANER: CHRISTIAN 08/02/18 1326 RPT#: [id number] DC DATE: STATUS: ADM IN [facility] [address] [place] [address] END OF REPORT
== END 2018-08-02 14:25 | disposition home or self-care (01) | DRG 247 ==
LOC: D.ER 15:49 → D.M2 21:40 → D.EDHOLD 21:40 → D.M2 23:23
PROVIDERS: Family Medicine; Internal Medicine Interventional Cardiology; ADMIT Internal Medicine Nephrology; ATTEND Internal Medicine Nephrology
PROC: 4A023N7 Measurement of Cardiac Sampling and Pressure, Left Heart, Percutaneous Approach (ICD-10-PCS; 2018-08-01)
PROC: B2111ZZ Fluoroscopy of Multiple Coronary Arteries using Low Osmolar Contrast (ICD-10-PCS; 2018-08-01)
PROC: 027135Z Dilation of Coronary Artery, Two Arteries with Two Drug-eluting Intraluminal Devices, Percutaneous Approach (ICD-10-PCS; principal; 2018-08-01 10:10)
DX: I25.110 Atherosclerotic heart disease of native coronary artery with unstable angina pectoris (principal); N17.9 Acute kidney failure, unspecified; Z68.42 Body mass index [BMI] 45.0-49.9, adult; I25.82 Chronic total occlusion of coronary artery; K52.9 Noninfective gastroenteritis and colitis, unspecified; E66.01 Morbid (severe) obesity due to excess calories; I10 Essential (primary) hypertension; E78.5 Hyperlipidemia, unspecified; E11.9 Type 2 diabetes mellitus without complications; J44.9 Chronic obstructive pulmonary disease, unspecified; F32.9 Major depressive disorder, single episode, unspecified; F41.9 Anxiety disorder, unspecified; E86.0 Dehydration

== ENCOUNTER → 2018-08-22 09:42 | Outpatient (CLI) | payer MEDICAID ==
[2018-08-06 09:07] VITALS: BMI 47.5
[~2018-08-22 09:42] MED LIST changes: +FLAGYL500 MG PO; +HYDROCODON-ACE1 EA10 PO; +LEVAQUIN750 MG PO; +PLAVIX75 MG PO
== END | disposition home or self-care (01) ==
LOC: D.US 09:30
PROVIDERS: ATTEND Nurse Practitioner Adult Health
DX: M79.661 Pain in right lower leg (principal)

== ENCOUNTER 2019-08-14 20:44 | Emergency (ER) | payer MEDICAID ==
[~2019-08-14] VITALS: Ht 157.5 cm; Wt 112.3 kg
[2019-08-14 20:47] VITALS: Ht 157.5 cm; Wt 112.3 kg
[2019-08-14] MEDS ORDERED: LASIX20 MG PO (20:57)
[2019-08-14 22:09] LABS: BASOPHILS 0.3 % (0-2); EOSINOPHILS 2.2 % (0-7); HEMATOCRIT 45.8 % (36.0-48.0); HEMOGLOBIN 15.4 g/dL (12-16); IMMATURE GRANULOCYTES 0.3 % (0-5); LYMPHOCYTES 28.7 % (15-50); MCH 29.2 pg (26.0-34.0); MCHC 33.6 g/dL (31.0-37.0); MCV 86.9 fL (80.0-100.0); MEAN PLATELET VOLUME 11.2 fL (7.4-10.4); MONOCYTES 6.5 % (2-11); PLATELET COUNT 189 10x3/uL (130-400); RBC 5.27 10x6/uL (4.00-5.40); RDW 13.5 % (11.5-14.5); WBC 11.8 10x3/uL (4.8-10.8)
[2019-08-14 22:20] LABS: ANION GAP 9.8 mmol/L (8-16); CALCIUM 9.8 mg/dL (8.5-10.1); CARBON DIOXIDE 34.4 mmol/L (21.0-32.0); CREATININE - SERUM 1.7 mg/dL (0.6-1.3); POTASSIUM - SERUM 4.2 mmol/L (3.5-5.1)
[2019-08-14 22:33] LABS: ALBUMIN 3.6 g/dL (3.4-5.0); BILIRUBIN - TOTAL 0.32 mg/dL (0.2-1.3); PROTEIN - SERUM 8.4 g/dL (6.4-8.2); THYROID STIMULATING HORMONE 1.95 uIU/mL (0.36-3.74)
[2019-08-14 23:47] VITALS: BP 105/60
== END 2019-08-14 23:47 | disposition home or self-care (01) ==
LOC: D.ER 20:44
PROVIDERS: Family Medicine
DX: E86.0 Dehydration (principal); N17.9 Acute kidney failure, unspecified; I95.1 Orthostatic hypotension; E11.9 Type 2 diabetes mellitus without complications; Z86.73 Personal history of transient ischemic attack (TIA), and cerebral infarction without residual deficits; I11.0 Hypertensive heart disease with heart failure; I50.9 Heart failure, unspecified; J44.9 Chronic obstructive pulmonary disease, unspecified; Z79.4 Long term (current) use of insulin; R51 Headache; M25.561 Pain in right knee; M25.551 Pain in right hip; W19.XXXA Unspecified fall, initial encounter; Y93.9 Activity, unspecified; Y92.9 Unspecified place or not applicable

== ENCOUNTER → 2019-09-19 09:31 | Outpatient (CLI) | payer MEDICAID ==
[2019-08-14 20:47] VITALS: BMI 45.3
[~2019-09-19 09:31] MED LIST changes: +LASIX20 MG PO
== END | disposition home or self-care (01) ==
LOC: D.HCCARDIO 09:31
PROVIDERS: ATTEND Internal Medicine Cardiovascular Disease
DX: I25.119 Atherosclerotic heart disease of native coronary artery with unspecified angina pectoris (principal)

== ENCOUNTER → 2019-10-21 07:54 | Outpatient (CLI) | payer MEDICAID ==
[2019-08-14 20:47] VITALS: BMI 45.3
== END | disposition home or self-care (01) ==
LOC: D.US 07:54
PROVIDERS: ATTEND Internal Medicine Cardiovascular Disease
DX: R42 Dizziness and giddiness (principal)

== ENCOUNTER 2020-06-15 11:26 | Day surgery (SDC) | payer MEDICAID ==
[~2020-06-15] VITALS: Ht 157.5 cm; Wt 113.7 kg
--- NOTE | ~2020-06-15 | HEMODYNAMI ---
PATIENT:ELI ABRAHAM MEDICAL RECORD: [id number] : 63 LOCATION:[facility] ADMISSION DATE: 06/15/20 Generatedon:113:50 Patient name: ELI ABRAHAM Patient #: [id number] SSN: : 1965 Date of study: 06/15/2020 Page: Of Hemodynamic Procedure Report Patient Data Patient Demographics Procedure consent was obtained First Name: ELI Gender: Female Last Name: LEIGH : 1965 Middle Initial: GARRETT Age: 54 year(s) Patient #: [id number] Race: Additional ID: [id number] Contact details Address: [address] State: [place] City: [place] Zip code: [address] Past Medical History History of disease Date Diagnosis Comments CAD Allergies Allergen Reaction Date Comments Reported Other 12/01/2015 Dilaudid,PCN,Erythromycin,Z-Pack,Tramadol. allergy Penicillins 08/06/2018 Erythromycin 08/06/2018 Other 06/15/2020 AZITHROMYCIN allergy Admission Admission Data Admission Date: 06/15/2020 Admission Time: 11:26 Arrival Date: 06/15/2020 Arrival Time: 0:00 Height (in.): 61.81 BSA: 2.1 (m2) Height (cm.): 157 BMI: 46.25 (kg/m2) Weight (lbs.): 251.33 Weight (kg.): 114 Lab Results Lab Result Date: 06/15/2020 Lab Result Time: 0:00 Biochemistry Name Units Result Min Max BUN mg/dl 30 --(----)-* 7 18 Creatinine mg/dl 1.1 --(--*-)-- 0.6 1.3 eGFR ml/min 55 *-(----)-- 90 120 NONAFRICAN CBC Name Units Result Min Max Hematocrit % 41.9 -*(----)-- 42 54 Hemoglobin g/dl 14.1 --(*---)-- 13.5 17.5 Procedure Procedure Types Cath Procedure Diagnostic Procedure [facility] w/Coronaries Aortic Root Angiography Sedation Charges Moderate Sedation 10-24 minutes Procedure Description Procedure Date Procedure Date: 06/15/2020 Procedure Start Time: 13:23 Procedure End Time: 13:48 Procedure Staff Name Function Jaswinder Pike MD Performing Physician Julia Iglesias RT Monitor Janie Moon RT Scrub Jr Streeter RN Nurse Procedure Data Cath Procedure Fluoroscopy Diagnostic fluoroscopy Total fluoroscopy Time: 5.2 time: 5.2 min min Diagnostic fluoroscopy Total fluoroscopy dose: 988 dose: 988 mGy mGy Contrast Material Contrast Material Type Amount (ml) Isovue 300 88 Entry Location Entry Primary Successful Side Size Upsize Upsize Entry Closure Succes sful Closure Location (Fr) 1 (Fr) 2 (Fr) Remarks Device Remarks Femoral Right 5 Fr Exoseal artery Estimated blood loss: 10 ml Diagnostic catheters Device Type Used For End Catheter Placement MULTIPACK JL 4.0 5Fr Procedure catheter MULTIPACK 3DRC 5Fr Procedure catheter MULTIPACK Pigtail 5 Fr Ventriculography catheter Procedure Complications No complications Procedure Medications Medication Administration Route Dosage 0.9% NaCl I.V. 100 ml/hr Oxygen etCO2 Nasal cannula 2 l/min Heparin Flush Bag added to field 2 bags (1000units/500ml NS) Lidocaine 2% added to field 20 Benadryl I.V. 50 mg Versed I.V. 2 mg Fentanyl I.V. 100 mcg Versed I.V. 2 mg Fentanyl I.V. 100 mcg Hemodynamics Rest BSA: 2.1 (m2) HGB: 14.1 (g/dl) O2 Consumption: Estimated: 285.6 (ml/min) O2 Cons umption indexed: Estimated:136 (ml/min/m) Heart Rate: 0 (bpm) Pressure Samples Time Site Value (mmHg) Purpose Heart Use Rate(bpm) 13:41 LV 111/20,20 Snapshot 97 13:42 AO 128/63(91) Pullback 98 13:42 LV 131/7,14 Pullback 98 Gradients Valve Time Site 1 Site 2 Mean SEP/DFP Peak To Heart Use (mmHg) (sec/min) Peak Rate (mmHg) (bpm) Aortic 13:42 LV AO 6 27 3 98 131/7,14 128/63(91) Calculations Valve P-P Mean Valve Index Valve Source Name Gradient Area Flow (cm2) Aortic 3 6 3 6 Snapshots Pre Cath Intra NCS Post Cath Vital Signs Time Heart Resp SPO2 etCO2 NIBP (mmHg) Rhythm Pain Sedation Rate (ipm) (%) (mmHg) Status Level (bpm) 13:13:37 86 10 98 44.1 140/81(112) NSR 0 (11) 10(A) , No pain 13:17:57 85 15 96 44.9 120/78(102) NSR 0 (11) 10(A) , No pain 13:22:09 84 10 92 35.7 105/65(82) NSR 0 (11) 10(A) , No pain 13:26:21 85 10 94 25.8 103/63(82) NSR 0 (11) 10(A) , No pain 13:30:31 89 14 92 44.1 93/66(85) NSR 0 (11) 9(A) , No pain 13:35:32 92 17 96 50.9 110/73(102) NSR 0 (11) 9(A) , No pain 13:40:31 94 19 98 50.1 114/74(89) NSR 0 (11) 9(A) , No pain 13:45:34 97 15 97 49.4 119/69(93) NSR 0 (11) 10(A) , No pain Medications Time Medication Route Dose Verified Delivered Reason Notes Eff ectiveness by by 13:12:43 0.9% NaCl I.V. 100 Jr Jr Per ml/hr Syl Streeter physician RN RN 13:12:56 Oxygen etCO2 2 Jr Jr for low 02 Nasal l/min Lorigan Lorigan sats cannula RN RN 13:13:07 Heparin Flush added 2 Jr Jr used for Bag to bags Lorigan Syl procedure (1000units/500ml field RN RN NS) 13:13:21 Lidocaine 2% added 20ml Jr Jr for local to vial Lorigan Lorigan anesthetic field RN RN 13:13:49 Benadryl I.V. 50 mg Jr Jr Per Syl Streeter physician RN RN 13:21:05 Versed I.V. 2 mg Jr Jr for Lorigan Lorigan sedation RN RN 13:21:18 Fentanyl I.V. 100 Jr Jr for mcg Lorigan Lorigan sedation RN RN 13:24:50 Versed I.V. 2 mg Jr Norris for Lorigan Syl sedation RN RN 13:25:01 Fentanyl I.V. 100 Jr Norris for mcg Lorleonardo Streeter sedation RN multicultural services librarian Log Time Note 12:35:36 Informed consent obtained and on chart 12:36:42 Procedure Status Elective Heart Cath (OP). 12:36:44 Time tracking: Regular hours (M-F 7:00 - 5:00) 12:36:48 Plan of Care:Hemodynamics will remain stable., Cardiac rhythm will remain stable., Comfort level will be maintained., Respiratory function will remain adequate., Patient/ family verbilizes understanding of procedure., Procedure tolerated without complication., Recovers from procedure without complications.. 12:38:08 H&P Date Dictated: 06/08/2020 Within 30 days and on chart., H&P Addendum completed by physician on day of procedure. (MUST COMPLETE FOR ALL OUTPATIENTS). 12:45:33 Patient allergic to Other allergyAZITHROMYCIN 12:51:17 Jr Streeter RN sent for patient. Start room use. 12:54:52 Lab Result : BUN 30 mg/dl 12:54:52 Lab Result : Hematocrit 41.9 % 12:54:52 Lab Result : eGFR NONAFRICAN 55 ml/min 12:54:52 Lab Result : Creatinine 1.1 mg/dl 12:54:52 Lab Result : Hemoglobin 14.1 g/dl 12:57:13 Patient received from Pre/Post Procedure Room to [facility] Alert and oriented. Tansferred to table in Supine position. 12:57:22 Warm blankets applied, and mundo hugger turned on for patient comfort. 12:57:22 Correct patient and procedure confirmed by team. 12:57:23 ECG and BP/O2 sat monitors applied to patient. 12:58:21 Patient Weight : 251.33 lbs 12:58:25 Patient Height : 61.81 inches 12:58:29 Arrival Date: 06/15/2020 12:00:00 AM 12:59:34 Full Disclosure recording started 12:59:34 Pre-procedure instructions explained to patient. 12:59:35 Pre-op teaching completed and patient verbalized understanding. 12:59:37 Family unavailable. 13:05:59 Was the patient premedicated? Yes 13:06:02 Is patient on blood thinner?No 13:06:04 Patient diabetic? Yes. 13:06:06 If diabetic: On Metformin? No 13:06:11 Snore? Yes 13:06:13 Sleep apnea? Yes 13:06:19 Dentures? No ? 13:06:27 IV patent on arrival in left forearm with 0.9% NaCl at KVO. 13:06:31 Lab results completed and on chart. 13:07:56 Stress Test: no; N/A ? 13:08:00 Right groin area was prepped with chlora-prep and draped in sterile fashion 13:08:01 Alarms reviewed by R. N. 13:08:02 Sharps counted by scrub and verified by R.N. 13:09:45 Physician arrived 13:09:47 --------ALL STOP TIME OUT------ 13:09:48 Final Timeout: patient, procedure, and site verified with staff and physician. All members of the team are in agreement. 13:09:51 Right groin site verified by team. 13:09:55 Fire Safety Assessment: A--An alcohol-based skin anteseptic being used preoperatively., C--Open oxygen or nitrous oxide is being used., D--An ESU, laser, or fiber-optic light is being used. 13:10:12 Physical assessment completed. ASA score P 3 - A patient with severe systemic disease as per Jaswinder Pike MD. 13:10:17 3a) 45-59 Moderately reduced kidney function. 13:10:20 Maximum allowable contrast dose (3.7 X eGFR X 0.75)144 ml. 13:10:25 Sedation plan: IV Moderate Sedation Medication:Versed, Fentanyl 13:10:31 Use device set Femoral Dx 13:10:32 ACIST Syringe (27166) opened to sterile field. 13:10:32 Bag Decanter (2002) opened to sterile field. 13:10:33 Medline Cath Pack ([id number]) opened to sterile field. 13:10:35 ACIST Hand Control (86994) opened to sterile field. 13:10:35 ACIST Manifold (80097) opened to sterile field. 13:10:36 DIAGNOSTIC Multipack 5Fr catheter set (DQ3040) opened to sterile field. 13:10:37 Tegaderm 4 x 4 (1626W) opened to sterile field. 13:10:38 SHEATH 5FR [place] (AQU187) opened to sterile field. 13:10:39 EMERALD Guide Wire (312-008) opened to sterile field. 13:12:26 Vital chart was started 13:12:28 Baseline sample Acquired. 13:12:43 0.9% NaCl 100 ml/hr I.V. was administered by Jr Streeter RN; Per physician; Verbal order read back and verified. 13:12:56 Oxygen 2 l/min etCO2 Nasal cannula was administered by Jr Streeetr RN; for low 02 sats; Verbal order read back and verified. 13:13:07 Heparin Flush Bag (1000units/500ml NS) 2 bags added to field was administered by Jr Streeter RN; used for procedure; Verbal order read back and verified. 13:13:21 Lidocaine 2% 20ml vial added to field was administered by Jr Streeter RN; for local anesthetic; Verbal order read back and verified. 13:13:49 Benadryl 50 mg I.V. was administered by Jr Streeter RN; Per physician; Verbal order read back and verified. 13:16:11 Zero performed for pressure channel P1 13:16:14 Zero performed for pressure channel P1 13:21:05 Versed 2 mg I.V. was administered by Jr Streeter RN; for sedation; Verbal order read back and verified. 13:21:18 Fentanyl 100 mcg I.V. was administered by Jr Streeter RN; for sedation; Verbal order read back and verified. 13:21:35 Procedure started. 13:23:21 Local anesthetic to right femoral artery with Lidocaine 2% by Jaswinder Pike MD.INITIAL ACCESS ONLY 13:24:50 Versed 2 mg I.V. was administered by Jr Streeter RN; for sedation; Verbal order read back and verified. 13:25:01 Fentanyl 100 mcg I.V. was administered by Jr Streeter RN; for sedation; Verbal order read back and verified. 13:32:48 A 5 Fr sheath was inserted into the Right Femoral artery 13:32:59 A MULTIPACK JL 4.0 5Fr catheter was advanced over the wire and used for Procedure. 13:33:01 LCA angiography performed. 13:35:53 Catheter removed. 13:36:01 A MULTIPACK 3DRC 5Fr catheter was advanced over the wire and used for Procedure. 13:36:12 RCA angiography performed. 13:37:49 Catheter removed. 13:42:07 A MULTIPACK Pigtail 5 Fr catheter was advanced over the wire and used for Ventriculography. 13:42:17 EF : 55 % 13:42:35 Aortic Root visualized 13:42:39 Catheter removed. 13:43:03 EXOSEAL 5Fr (EX500) opened to sterile field. 13:45:08 Sheath removed intact; hemostasis achieved with Exoseal to the Right Femoral artery. 13:45:10 Procedure ended.(Physican Out) 13:45:20 Fluoroscopy time 05.20 minutes. 13:45:43 Fluoroscopy dose: 988 mGy 13:45:43 Flurop Dose total: 988 13:45:50 Dose Area Product 62005 mGy/cm. 13:45:57 Contrast amount:Isovue 300 88ml. 13:46:00 Maximum allowable dose exceeded? No. 13:46:01 Sharps counted by scrub and verified by R.N. 13:46:11 Insertion/operative site no bleeding no hematoma. 13:46:25 Post-procedure physical assessment completed. ASA score P 3 - A patient with severe systemic disease as per Jaswinder Pike MD. 13:46:29 Estimated blood loss: 10 ml 13:46:34 Post procedure instruction explained to patient.Patient verbalizes understanding. 13:47:21 Procedure type changed to Cath procedure, Diagnostic procedure, C, [facility] w/Coronaries, Aortic Root Angiography, Sedation Charges, Moderate Sedation 10-24 minutes 13:47:22 Procedure and supply charges have been captured, reviewed, submitted and are correct. 13:48:08 Procedure Complication : No complications 13:48:11 Vital chart was stopped 13:48:13 [facility] Findings: MVD- CABG consult 13:48:17 Operative report dictated upon procedure completion. 13:48:22 Report given to Pre/Post Procedure Room. 13:48:31 Patient transfered to Pre/Post Procedure Room with Stretcher. 13:48:33 Procedure ended. 13:48:33 Full Disclosure recording stopped 13:48:36 End room use (Document Last) 13:49:16 End room use (Document Last) 13:49:41 End room use (Document Last) Device Usage Item Name Manufacture Quantity Catalog Hospital Part Current Minimal L ot# / Number Charge Number Stock Stock Serial# Code ACIST Acist 1 10432 465308 284890 334395 20 Syringe Medical (03083) Systems Inc Bag Microtek 1 2001S 660050 00256 277104 5 Decanter Medical Inc. () Medline Medline 1 [id number] 519236 66428 953133 5 Cath Pack ([id number]) ACIST Hand Acist 1 41800 256078 166157 147437 5 Control Medical (83881) Systems Inc ACIST Acist 1 22564 352593 320223 301920 5 Manifold Medical (25695) Systems Inc DIAGNOSTIC Cardinal 1 [id number] 959564 20606 842689 30 Multipack Health 5Fr catheter set (DV0655) Tegaderm 4 3M 1 1626W 687190 771932 065733 5 x 4 (1626W) SHEATH 5FR Terumo 1 CEU096 075961 909976 808990 5 [place] (AGO143) EMERALD Cardinal 1 502-455 788734 919708 336744 5 Guide Wire [facility] (502-455) MULTIPACK Cardinal 1 272974 5 JL 4.0 5Fr Health catheter MULTIPACK Cardinal 1 192124 5 3DRC 5Fr Health catheter MULTIPACK Cardinal 1 559686 5 Pigtail 5 Health Fr catheter EXOSEAL 5Fr Cardinal 1 EX500 160374 609911 635236 10 (EX500) Health Signature Audit [place] Stage Time Signature Unsigned Intra-Procedure 06/15/2020 Julia Iglesias 1:49:16 PM RT(R) Intra-Procedure 06/15/2020 Jr 1:49:41 PM Syl RN Intra-Procedure 06/15/2020 Jaswinder Pike MD 1:50:[address] [facility] [address] [place] [address]
[2020-06-15] MEDS ORDERED: NEURONTIN 400400 MG PO (11:39)
[2020-06-15] MEDS ORDERED: LISINOPRIL-HCT1 EAC8 PO (11:40)
[2020-06-15 11:59] VITALS: BP 100/68; Ht 157.5 cm; Wt 113.7 kg
[2020-06-15 12:23] LABS: BASOPHILS 0.4 % (0-2); EOSINOPHILS 2.2 % (0-7); HEMATOCRIT 41.9 % (36.0-48.0); HEMOGLOBIN 14.1 g/dL (12-16); IMMATURE GRANULOCYTES 0.1 % (0-5); LYMPHOCYTES 25.8 % (15-50); MCH 28.3 pg (26.0-34.0); MCHC 33.7 g/dL (31.0-37.0); MEAN PLATELET VOLUME 10.9 fL (7.4-10.4); NEUTROPHIL ABS# 5.26 10x3/uL (1.56-6.13); NEUTROPHILS 64.5 % (40-80); PLATELET COUNT 163 10x3/uL (130-400); RBC 4.99 10x6/uL (4.00-5.40); RDW 13.5 % (11.5-14.5); WBC 8.2 10x3/uL (4.8-10.8)
[2020-06-15 12:42] LABS: ANION GAP 8.5 mmol/L (8-16); CARBON DIOXIDE 33.9 mmol/L (21.0-32.0); CHOL - HDL RATIO 5.6 ratio (2.3-4.1); CREATININE - SERUM 1.1 mg/dL (0.6-1.3); LDL-HDL RATIO 3.1 ratio (1.5-3.5); POTASSIUM - SERUM 4.4 mmol/L (3.5-5.1)
--- NOTE | 2020-06-15 13:57 | NUR ---
PT RECEIVED BACK TO ROOM 3 VIA STRETCHER FROM GRAPHOTYPE OPERATOR FOR RECOVERY. PT DROWSY BUT VERBALLY AROUSABLE. IV PATENT INFUSING VIA L ARM PER ORDERS. PT PLACED ON CARDIAC MONITORS AND 02 VIA NC AT 2L. SEE VS SHEET. R GROIN SOFT, DRESSING CDI NO S/S HEMATOMA OR BLEEDING NOTED. LEG PINK AND WARM, PEDAL PULSES PALPABLE. PT INSTRUCTED TO KEEP HEAD FLAT AND LEG STRAIGHT, SHE VERBALIZED UNDERSTANDING. CALL LIGHT IN REACH
--- NOTE | 2020-06-15 14:15 | NUR ---
PT'S BLOOD SUGAR ACCORDING TO COURT TRANSCRIBER RN WAS 499, ORDERS RECEIVED FROM DR MAR FOR 10U REG INSULIN. DR MAR AT BS, DISCUSSED F/U W PT. R GROIN SOFT, DRESSING CDI NO S/S HEMATOMA OR BLEEDING. SIPS OF WATER GIVEN. VSS AT PRESENT. CALL LIGHT IN REACH
--- NOTE | 2020-06-15 14:25 | NUR ---
INSULIN 10 UNITS GIVEN SQ TO R LOWER ABD PER ORDERS.
--- NOTE | 2020-06-15 14:55 | NUR ---
R GROIN SOFT, DRESSING CDI NO S/S HEMATOMA OR BLEEDING NOTED. VSS AT PRESENT. HOB ELEVATED SLIGHTLY. BS RECHECKED, 449. DR MAR NOTIFIED AND ORDERS RECEIVED. PT GIVEN SANDWICH TRAY PER REQUEST. CALL LIGHT IN REACH
--- NOTE | 2020-06-15 15:30 | NUR ---
PT RESTING COMFORTABLY, DENIES PAIN OR NEEDS. R GROIN REMAINS SOFT NO S/S HEMATOMA OR BLEEDING NOTED. VSS. CALL LIGHT IN REACH. TOLERATING PO FLUIDS AND SOLIDS.
--- NOTE | 2020-06-15 15:45 | NUR ---
BS RECHECKED 440. PT STATES SHE WILL RE CHECK WHEN GETS HOME AND DOSE ACCORDING TO HER SS. PT NOT SYMPTOMATIC AND STATES HER BS GETS THIS HIGH FREQUENTLY. DISCHARGE INSTRUCTIONS REVIEWED W PT, SHE VERBALIZED UNDERSTANDING. IV REMOVED W CATH INTACT. R GROIN SOFT, NO S/S HEMATOMA OR BLEEDING. MONITORS REMOVED, PT UP TO DRESS.
--- NOTE | 2020-06-15 15:54 | NUR ---
PT AMBULATED TO BR, VOIDING W/O DIFFICULITY.
--- NOTE | 2020-06-15 16:00 | NUR ---
PT DISCHARGED VIA WC TO WAITING IN PRIVATE VEHICLE. PT HAD ALL BELONGINGS AND DISCHARGE FOLDER
== END 2020-06-15 16:00 | disposition home or self-care (01) ==
LOC: D.CATH 11:26
PROVIDERS: ATTEND Internal Medicine Cardiovascular Disease
DX: I25.110 Atherosclerotic heart disease of native coronary artery with unstable angina pectoris (principal); I10 Essential (primary) hypertension; E11.9 Type 2 diabetes mellitus without complications; M79.89 Other specified soft tissue disorders; R42 Dizziness and giddiness; M79.604 Pain in right leg

== ENCOUNTER 2020-06-30 08:00 | Outpatient (CLI) | payer MEDICAID ==
[~2020-06-30 08:00] MED LIST changes: +LISINOPRIL-HCT1 EAC8 PO; +NEURONTIN 400400 MG PO
[2020-06-30] MEDS ORDERED: NOVOLOG100 UNIT/1 SC (09:44)
--- NOTE | 2020-06-30 10:00 | NUR ---
PT MENTIONED SHE HAS A THIRD DEGREE BURN ON HER RT BREAST THAT HAS BEEN TREATED WITH ANTIBIOTICS AND SILVADEAN FOR THE PAST MONTH. STATES SHE COVERS IT AT NIGHT WITH A BANDAGE AND DOES DRAIN ON GAUZE. STATES SHE DIDN'T LET TYLER'S NURSE KNOW ABOUT IT WHEN SHE SAW HER IN THE OFFICE. CALLED HAYLIE TO TELL HER ABOUT BURN. HAYLIE STATED SHE WOULD COME LOOK AT BURN.
--- NOTE | 2020-06-30 10:05 | NUR ---
HAYLIE RN TO AND SPOKE WITH PT ABOUT BURN TOOK PIC FOR TYLER TO SEE. TOLD PT SHE WOULD GET BACK WITH PT IF THERE WAS GOING TO BE A PROB.
[2020-06-30 11:35] LABS: BILIRUBIN NEGATIVE (NEGATIVE); KETONE NEGATIVE (NEGATIVE); NITRITE NEGATIVE (NEGATIVE); UROBILINOGEN NORMAL mg/dL (< 2)
[2020-06-30 11:36] LABS: BACTERIA FEW HPF (NONE SEEN); SQUAMOUS EPITHELIAL 0-5 HPF (0-4); WHITE CELLS - URINE 0-5 HPF (0-4)
[2020-06-30 11:40] LABS: BASOPHILS 0.5 % (0-2); EOSINOPHILS 3.1 % (0-7); HEMATOCRIT 38.3 % (36.0-48.0); HEMOGLOBIN 12.9 g/dL (12-16); IMMATURE GRANULOCYTES 0.1 % (0-5); LYMPHOCYTE ABS# 2.24 10x3/uL (1.18-3.74); LYMPHOCYTES 29.8 % (15-50); MCHC 33.7 g/dL (31.0-37.0); MCV 83.3 fL (80.0-100.0); MEAN PLATELET VOLUME 10.7 fL (7.4-10.4); MONOCYTES 6.1 % (2-11); NEUTROPHIL ABS# 4.54 10x3/uL (1.56-6.13); NEUTROPHILS 60.4 % (40-80); PLATELET COUNT 169 10x3/uL (130-400); RDW 13.3 % (11.5-14.5); WBC 7.5 10x3/uL (4.8-10.8)
[2020-06-30 11:53] LABS: ALBUMIN 3.5 g/dL (3.4-5.0); BILIRUBIN - TOTAL 0.26 mg/dL (0.2-1.3); CALCIUM 9.8 mg/dL (8.5-10.1); CARBON DIOXIDE 35.9 mmol/L (21.0-32.0); CREATININE - SERUM 1.1 mg/dL (0.6-1.3); PHOSPHOROUS 3.9 mg/dL (2.5-4.9); POTASSIUM - SERUM 4.9 mmol/L (3.5-5.1); PROTEIN - SERUM 7.5 g/dL (6.4-8.2); T4 THYROXIN - FREE 1.04 ng/dL (0.76-1.46); THYROID STIMULATING HORMONE 2.34 uIU/mL (0.36-3.74); URIC ACID 8.7 mg/dL (2.6-7.2)
[2020-06-30 12:06] LABS: APTT 24.6 SECONDS (22.8-39.4); INR 1.09 (0.85-1.17); PROTIME 13.1 SECONDS (11.6-15.0)
[2020-08-29 07:39] VITALS: BMI 55.4
== END 2020-06-30 08:01 | disposition home or self-care (01) ==
LOC: D.PAN 08:00 → D.SDCHOLD 07-02 07:30 → EDSTATUS 07-02 07:30
PROVIDERS: ATTEND Thoracic Surgery (Cardiothoracic Vascular Surgery)
DX: I25.10 Atherosclerotic heart disease of native coronary artery without angina pectoris (principal)

== ENCOUNTER 2020-08-09 15:37 | Inpatient (IN) | payer MEDICAID ==
[~2020-08-09] VITALS: Ht 157.5 cm; Wt 133.4 kg
[~2020-08-09 15:37] MED LIST changes: +NOVOLOG100 UNIT/1 SC
[2020-08-09 16:28] LABS: BASOPHILS 0.2 % (0-2); EOSINOPHILS 2.4 % (0-7); HEMATOCRIT 38.5 % (36.0-48.0); HEMOGLOBIN 12.7 g/dL (12-16); IMMATURE GRANULOCYTES 0.3 % (0-5); LYMPHOCYTE ABS# 2.29 10x3/uL (1.18-3.74); LYMPHOCYTES 25.8 % (15-50); MCH 28.5 pg (26.0-34.0); MCV 86.3 fL (80.0-100.0); MEAN PLATELET VOLUME 10.6 fL (7.4-10.4); MONOCYTES 5.1 % (2-11); NEUTROPHIL ABS# 5.86 10x3/uL (1.56-6.13); NEUTROPHILS 66.2 % (40-80); PLATELET COUNT 163 10x3/uL (130-400); RBC 4.46 10x6/uL (4.00-5.40); RDW 14.5 % (11.5-14.5); WBC 8.9 10x3/uL (4.8-10.8)
--- NOTE | 2020-08-09 16:35 | NUR ---
URINE SAMPLE SENT TO LAB.
[2020-08-09 16:39] LABS: CALC OSMOLALITY 291 mosm/kg (275-300); CARBON DIOXIDE 31.2 mmol/L (21.0-32.0); CHLORIDE - SERUM 105 mmol/L (98-107); CREATININE - SERUM 0.9 mg/dL (0.6-1.3); SODIUM 141 mmol/L (136-145); UREA NITROGEN 26 mg/dL (7-18); eGFR NON AFRICAN AMERICAN 69 mL/min (90-120)
[2020-08-09 16:40] LABS: APTT 27.9 SECONDS (22.8-39.4); INR 1.11 (0.85-1.17); PROTIME 13.2 SECONDS (11.6-15.0)
[2020-08-09 16:41] LABS: GLUCOSE 215 mg/dL (74-106)
--- NOTE | 2020-08-09 16:46 | NUR ---
, GIANA BREWER, HOME PHONE NUMBER [phone]
[2020-08-09 16:54] LABS: ALBUMIN 3.3 g/dL (3.4-5.0); ALKALINE PHOSPHATASE 84 U/L (30-120); ALT (SGPT) 21 U/L (10-68); BILIRUBIN - TOTAL 0.35 mg/dL (0.2-1.3); CKMB 2.3 U/L (0.0-3.6); CREATINE KINASE 69 UL (21-215); MAGNESIUM - SERUM 2.1 mg/dL (1.8-2.4); PROTEIN - SERUM 7.6 g/dL (6.4-8.2); TROPONIN-I 0.024 ng/mL (0.000-0.060)
[2020-08-09 19:20] VITALS: BP 154/86
[2020-08-09 20:20] VITALS: BP 133/70
[2020-08-09 22:37] VITALS: BP 121/62
[2020-08-09] MEDS ORDERED: ALBUTEROL SULF8.5 GM INH (23:18)
[2020-08-09] MEDS ORDERED: ZOCOR10 MG PO (23:18)
[2020-08-09] MEDS ORDERED: ATIVAN0.5 MG PO (23:20)
[2020-08-09] MEDS ORDERED: NOVOLOG100 UNIT/1 SC (23:20)
[2020-08-09] MEDS ORDERED: VENTOLIN HFA [SP8 GM (23:21)
[2020-08-09] MEDS ORDERED: BENADRYL50 MG PO (23:22)
[2020-08-10] VITALS (13 sets, daily range): BP systolic 90–133; BP diastolic 41–72; BMI 45.8
[2020-08-10 00:46] LABS: CKMB 2.1 U/L (0.0-3.6); CREATINE KINASE 60 UL (21-215)
[2020-08-10 02:13] LABS: BILIRUBIN NEGATIVE (NEGATIVE); KETONE NEGATIVE (NEGATIVE); NITRITE NEGATIVE (NEGATIVE); UROBILINOGEN NORMAL mg/dL (< 2)
[2020-08-10 02:15] LABS: BACTERIA MODERATE HPF (NONE SEEN); SQUAMOUS EPITHELIAL 0-5 HPF (0-4); WHITE CELLS - URINE 0-5 HPF (0-4)
--- NOTE | 2020-08-10 05:52 | NUR ---
pt complains of pain 9/10 pain in chest. prn pain med given. pt still in pain. will continue to monitor.
[2020-08-10 07:08] LABS: BASOPHILS 0.2 % (0-2); HEMATOCRIT 36.5 % (36.0-48.0); HEMOGLOBIN 11.9 g/dL (12-16); IMMATURE GRANULOCYTES 0.2 % (0-5); LYMPHOCYTES 29.7 % (15-50); MCH 28.2 pg (26.0-34.0); MCHC 32.6 g/dL (31.0-37.0); MCV 86.5 fL (80.0-100.0); MEAN PLATELET VOLUME 11.3 fL (7.4-10.4); MONOCYTES 7.8 % (2-11); NEUTROPHIL ABS# 5.16 10x3/uL (1.56-6.13); NEUTROPHILS 59.1 % (40-80); PLATELET COUNT 166 10x3/uL (130-400); RBC 4.22 10x6/uL (4.00-5.40); RDW 14.8 % (11.5-14.5); WBC 8.7 10x3/uL (4.8-10.8)
--- NOTE | 2020-08-10 07:15 | NUR ---
SPOKE WITH DR. Smith CONCERNING PT CONSULT.
--- NOTE | 2020-08-10 07:20 | NUR ---
RECIEVE REPORT. RESTING IN BED WITH EYES CLOSED. NO SIGNS OF DISTRESS. CONTINUE PLAN OF CARE AND SAFETY PRECAUTIONS.
[2020-08-10 07:38] LABS: ALKALINE PHOSPHATASE 73 U/L (30-120); ALT (SGPT) 20 U/L (10-68); BILIRUBIN - TOTAL 0.31 mg/dL (0.2-1.3); CALC OSMOLALITY 285 mosm/kg (275-300); CALCIUM 9.5 mg/dL (8.5-10.1); CARBON DIOXIDE 31.4 mmol/L (21.0-32.0); CHLORIDE - SERUM 105 mmol/L (98-107); CKMB 1.6 U/L (0.0-3.6); CREATINE KINASE 57 UL (21-215); CREATININE - SERUM 0.8 mg/dL (0.6-1.3); GLUCOSE 138 mg/dL (74-106); MAGNESIUM - SERUM 2.1 mg/dL (1.8-2.4); PHOSPHOROUS 3.7 mg/dL (2.5-4.9); POTASSIUM - SERUM 4.1 mmol/L (3.5-5.1); PROTEIN - SERUM 6.4 g/dL (6.4-8.2); SODIUM 141 mmol/L (136-145); TROPONIN-I 0.017 ng/mL (0.000-0.060); UREA NITROGEN 20 mg/dL (7-18); eGFR NON AFRICAN AMERICAN 79 mL/min (90-120)
[2020-08-10 11:14] LABS: CKMB 1.9 U/L (0.0-3.6); CREATINE KINASE 57 UL (21-215); TROPONIN-I 0.026 ng/mL (0.000-0.060)
[2020-08-10 16:24] LABS: APTT 26.9 SECONDS (22.8-39.4); INR 1.18 (0.85-1.17); PROTIME 13.9 SECONDS (11.6-15.0)
[2020-08-10 16:34] LABS: HEMATOCRIT 36.1 % (36.0-48.0); HEMOGLOBIN 11.7 g/dL (12-16); MCH 28.3 pg (26.0-34.0); MCHC 32.4 g/dL (31.0-37.0); MCV 87.2 fL (80.0-100.0); MEAN PLATELET VOLUME 10.8 fL (7.4-10.4); RBC 4.14 10x6/uL (4.00-5.40); RDW 14.6 % (11.5-14.5); WBC 7.4 10x3/uL (4.8-10.8)
--- NOTE | 2020-08-10 16:50 | NUR ---
ALERT AND ORIENTED X4. UP SHOWERING. REPORT CALLED TO [facility]. TRANSFER TO CV7.
--- NOTE | 2020-08-10 17:20 | NUR ---
1720- REC'D PT TO CVICU VIA W/C. ALL MONITORING EQUIPMENT ATTACHED AND ALARMS SET. ABG'S PER RT. PT IS A&OX3, UP AD [place]. VSS.
[2020-08-10 17:22] LABS: T4 THYROXIN - FREE 0.94 ng/dL (0.76-1.46); THYROID STIMULATING HORMONE 1.41 uIU/mL (0.36-3.74); URIC ACID 7.6 mg/dL (2.6-7.2)
--- NOTE | 2020-08-10 18:30 | NUR ---
HEPARIN GTT,INSULIN GTT,NITRO GTT STARTED.
[2020-08-11] VITALS (24 sets, daily range): BP systolic 91–148; BP diastolic 49–75
[2020-08-11 01:10] LABS: APTT 31.5 SECONDS (22.8-39.4); INR 1.13 (0.85-1.17); PROTIME 13.4 SECONDS (11.6-15.0)
[2020-08-11 05:15] LABS: BASOPHILS 0.2 % (0-2); EOSINOPHILS 2.5 % (0-7); HEMATOCRIT 38.1 % (36.0-48.0); HEMOGLOBIN 12.3 g/dL (12-16); IMMATURE GRANULOCYTES 0.3 % (0-5); LYMPHOCYTE ABS# 1.98 10x3/uL (1.18-3.74); LYMPHOCYTES 21.4 % (15-50); MCH 27.8 pg (26.0-34.0); MCHC 32.3 g/dL (31.0-37.0); MEAN PLATELET VOLUME 10.7 fL (7.4-10.4); MONOCYTES 8.1 % (2-11); NEUTROPHIL ABS# 6.26 10x3/uL (1.56-6.13); NEUTROPHILS 67.5 % (40-80); PLATELET COUNT 174 10x3/uL (130-400); RBC 4.43 10x6/uL (4.00-5.40); RDW 14.5 % (11.5-14.5)
[2020-08-11 05:20] LABS: WBC 9.3 10x3/uL (4.8-10.8)
[2020-08-11 05:44] LABS: ALBUMIN 3.2 g/dL (3.4-5.0); ANION GAP 10.9 mmol/L (8-16); BILIRUBIN - TOTAL 0.32 mg/dL (0.2-1.3); CALCIUM 8.9 mg/dL (8.5-10.1); CARBON DIOXIDE 30.3 mmol/L (21.0-32.0); PHOSPHOROUS 3.3 mg/dL (2.5-4.9); POTASSIUM - SERUM 4.2 mmol/L (3.5-5.1); PROTEIN - SERUM 6.8 g/dL (6.4-8.2)
--- NOTE | 2020-08-11 09:45 | NUR ---
PT REPORTS NOSE BLEED THIS AM. REPORTED TO MARCELINO AND DR SCOTT AT 730AM. REC'D ORDERS TO DC HEPARIN AT 0924. DID FOLLOW SS HEPARIN PROTOCOL UNTIL ORDERS FROM DR SCOTT. REPORTED TO [facility] IN OR WHO REPORTED TO OR TEAM AND ANESTHESIA. REC'D ORDERS TO HAVE NASAL PACKING AT BS. NASAL PACKING OBTAINED FROM ER. NO FURTHER NOSE BLEEDING. SURINDER FROM OR TEAM DID CALL FREQUENTLY TO OBTAIN REPORT RE: NOSE BLEEDING. REPORTED NO FURTHER BLEED AND NASAL PACKING AT BS.
[2020-08-11 11:18] LABS: PLT FUNCT.(P2Y12) PLAVIX 264 PRU (194-418)
[2020-08-11 15:02] LABS: BILIRUBIN NEGATIVE (NEGATIVE); KETONE NEGATIVE (NEGATIVE); NITRITE NEGATIVE (NEGATIVE); UROBILINOGEN NORMAL mg/dL (< 2)
[2020-08-12] VITALS (23 sets, daily range): BP systolic 93–153; BP diastolic 30–90; Ht 157.5 cm; Wt 133.4 kg
[2020-08-12 04:44] LABS: BASOPHILS 0.2 % (0-2); HEMATOCRIT 34.4 % (36.0-48.0); HEMOGLOBIN 11.2 g/dL (12-16); IMMATURE GRANULOCYTES 0.4 % (0-5); LYMPHOCYTE ABS# 2.44 10x3/uL (1.18-3.74); LYMPHOCYTES 28.9 % (15-50); MCHC 32.6 g/dL (31.0-37.0); MEAN PLATELET VOLUME 10.6 fL (7.4-10.4); MONOCYTES 8.6 % (2-11); NEUTROPHIL ABS# 4.97 10x3/uL (1.56-6.13); NEUTROPHILS 58.9 % (40-80); PLATELET COUNT 160 10x3/uL (130-400); RDW 14.6 % (11.5-14.5); WBC 8.4 10x3/uL (4.8-10.8)
[2020-08-12 05:08] LABS: ALBUMIN 2.8 g/dL (3.4-5.0); ALKALINE PHOSPHATASE 71 U/L (30-120); ALT (SGPT) 21 U/L (10-68); BILIRUBIN - TOTAL 0.24 mg/dL (0.2-1.3); CALC OSMOLALITY 281 mosm/kg (275-300); CALCIUM 8.8 mg/dL (8.5-10.1); CARBON DIOXIDE 29.4 mmol/L (21.0-32.0); CHLORIDE - SERUM 104 mmol/L (98-107); CREATININE - SERUM 0.8 mg/dL (0.6-1.3); GLUCOSE 123 mg/dL (74-106); PHOSPHOROUS 3.3 mg/dL (2.5-4.9); POTASSIUM - SERUM 3.7 mmol/L (3.5-5.1); PROTEIN - SERUM 6.7 g/dL (6.4-8.2); SODIUM 140 mmol/L (136-145); UREA NITROGEN 17 mg/dL (7-18); eGFR NON AFRICAN AMERICAN 79 mL/min (90-120)
--- NOTE | 2020-08-12 09:50 | NUR ---
AWAITING CLARIFICATION ON AM MEDICATIONS BEFORE ADMINISTRATION WAS TOLD IN REPORT GOING TO OR TODAY.
[2020-08-13] VITALS (43 sets, daily range): BP systolic 91–129; BP diastolic 49–75
[2020-08-13 04:41] LABS: BASOPHILS 0.2 % (0-2); EOSINOPHILS 3.3 % (0-7); HEMATOCRIT 34.5 % (36.0-48.0); HEMOGLOBIN 11.3 g/dL (12-16); IMMATURE GRANULOCYTES 0.2 % (0-5); LYMPHOCYTE ABS# 2.62 10x3/uL (1.18-3.74); LYMPHOCYTES 27.8 % (15-50); MCH 28.2 pg (26.0-34.0); MCHC 32.8 g/dL (31.0-37.0); MEAN PLATELET VOLUME 10.3 fL (7.4-10.4); MONOCYTES 7.2 % (2-11); NEUTROPHIL ABS# 5.77 10x3/uL (1.56-6.13); NEUTROPHILS 61.3 % (40-80); PLATELET COUNT 167 10x3/uL (130-400); RBC 4.01 10x6/uL (4.00-5.40); RDW 14.7 % (11.5-14.5); WBC 9.4 10x3/uL (4.8-10.8)
[2020-08-13 05:00] LABS: ALBUMIN 2.9 g/dL (3.4-5.0); ALKALINE PHOSPHATASE 70 U/L (30-120); ALT (SGPT) 24 U/L (10-68); BILIRUBIN - TOTAL 0.33 mg/dL (0.2-1.3); CALC OSMOLALITY 281 mosm/kg (275-300); CALCIUM 8.9 mg/dL (8.5-10.1); CARBON DIOXIDE 30.2 mmol/L (21.0-32.0); CHLORIDE - SERUM 105 mmol/L (98-107); CREATININE - SERUM 0.8 mg/dL (0.6-1.3); GLUCOSE 94 mg/dL (74-106); MAGNESIUM - SERUM 2.1 mg/dL (1.8-2.4); PHOSPHOROUS 3.5 mg/dL (2.5-4.9); POTASSIUM - SERUM 3.8 mmol/L (3.5-5.1); SODIUM 140 mmol/L (136-145); UREA NITROGEN 21 mg/dL (7-18); eGFR NON AFRICAN AMERICAN 79 mL/min (90-120)
--- NOTE | 2020-08-13 07:57 | NUR ---
PT TO OR. CONCENTS ON CHART. PREOPS DONE. ASSISTED TO BATHROOM PRIOR TO DEPARTING.
--- NOTE | 2020-08-13 14:59 | NUR ---
1440- rec'd to room S/P CABG. BS 151. INSULIN GTT AT 5U/H. TITRATING ORDERED. NO PRESSORS OR ANTIHYPERTENSIVES UPON ARRIVAL. VENT SETTINGS PER RT. ALL MONITORING EQUIPMENT ATTACHED AND ALARMS SET. CXR DONE.
[2020-08-13 15:26] LABS: APTT 34.4 SECONDS (22.8-39.4); INR 1.42 (0.85-1.17); PROTIME 16.1 SECONDS (11.6-15.0)
[2020-08-13 15:36] LABS: BASOPHILS 0.1 % (0-2); EOSINOPHILS 0.6 % (0-7); HEMATOCRIT 33.8 % (36.0-48.0); HEMOGLOBIN 11.1 g/dL (12-16); IMMATURE GRANULOCYTES 0.5 % (0-5); LYMPHOCYTE ABS# 1.71 10x3/uL (1.18-3.74); MCH 28.1 pg (26.0-34.0); MCHC 32.8 g/dL (31.0-37.0); MCV 85.6 fL (80.0-100.0); MEAN PLATELET VOLUME 10.6 fL (7.4-10.4); MONOCYTES 9.4 % (2-11); NEUTROPHIL ABS# 15.24 10x3/uL (1.56-6.13); NEUTROPHILS 80.4 % (40-80); PLATELET COUNT 158 10x3/uL (130-400); RBC 3.95 10x6/uL (4.00-5.40); RDW 14.8 % (11.5-14.5)
--- NOTE | 2020-08-13 16:17 | NUR ---
1540- DR SCOTT AT BS. AMIODARONE STARTED AT 0.5MG/MIN ORDERED.
--- NOTE | 2020-08-13 16:18 | NUR ---
1545- DR JOHNSON HERE AT BS.
--- NOTE | 2020-08-13 16:20 | NUR ---
ABG'S DRAWN AND CALLED TO DR JOHNSON. DIPROVAN DECREASED TO 30MCG/KG/MIN ORDERED TO TITRATE. VENT SETTINGS TITRATING DOWN BY RT.
--- NOTE | 2020-08-13 16:45 | NUR ---
PLACED PT ON CPAP 10/5 60% AT 16:30
--- NOTE | 2020-08-13 16:52 | NUR ---
PLACED PT BACK ON LAST VENT BEFORE CPAP AC/500/14/60%/7 16:53
--- NOTE | 2020-08-13 17:12 | NUR ---
CPAP TRIALS PER RT. DIPROVAN TITRATED DOWN TO 20MCG FROM 40. PT RESP REG. BP DROPS AND NIKITA TITRATED TO 0.6MCG/K/M. PT AWAKENING. CPAP TRIAL COMPLETE AND NIKITA TITRATED BACK DOWN AFTER DIPROVAN INCREASED TO 30MCG.
--- NOTE | 2020-08-13 22:15 | NUR ---
External cooling measures applied; ice packs to axilla and groin.
[2020-08-14] VITALS (52 sets, daily range): BP systolic 92–139; BP diastolic 25–67
--- NOTE | 2020-08-14 05:25 | NUR ---
Dressing to chest and right leg changed as ordered. Sutures intact to chest tubes and TPM wires. No sign of infection. Midsternal incision skin well approximated.
[2020-08-14 06:27] LABS: BASOPHILS 0.1 % (0-2); EOSINOPHILS 0.3 % (0-7); HEMATOCRIT 32.6 % (36.0-48.0); HEMOGLOBIN 10.5 g/dL (12-16); IMMATURE GRANULOCYTES 0.4 % (0-5); LYMPHOCYTE ABS# 2.25 10x3/uL (1.18-3.74); LYMPHOCYTES 11.9 % (15-50); MCH 27.9 pg (26.0-34.0); MCHC 32.2 g/dL (31.0-37.0); MCV 86.7 fL (80.0-100.0); MEAN PLATELET VOLUME 10.4 fL (7.4-10.4); MONOCYTES 9.8 % (2-11); NEUTROPHIL ABS# 14.69 10x3/uL (1.56-6.13); NEUTROPHILS 77.5 % (40-80); PLATELET COUNT 177 10x3/uL (130-400); RBC 3.76 10x6/uL (4.00-5.40); RDW 15.3 % (11.5-14.5); WBC 18.9 10x3/uL (4.8-10.8)
--- NOTE | 2020-08-14 06:30 | NUR ---
Shift summary: Arterial line to Left femoral discontinued, pressure applied. No sign of bleeding. Peripheral pulses intact to extremities. Patient aroused to touch, sedation continues. Morphine given prn for pain as ordered. See flowsheets for details.
[2020-08-14 06:36] LABS: ALBUMIN 2.4 g/dL (3.4-5.0); ANION GAP 12.2 mmol/L (8-16); BILIRUBIN - TOTAL 0.32 mg/dL (0.2-1.3); CALCIUM 8.7 mg/dL (8.5-10.1); CARBON DIOXIDE 23.6 mmol/L (21.0-32.0); CREATININE - SERUM 0.9 mg/dL (0.6-1.3); MAGNESIUM - SERUM 2.4 mg/dL (1.8-2.4); PHOSPHOROUS 2.9 mg/dL (2.5-4.9); POTASSIUM - SERUM 3.8 mmol/L (3.5-5.1); PROTEIN - SERUM 5.6 g/dL (6.4-8.2)
--- NOTE | 2020-08-14 07:50 | NUR ---
0700 PT RECIEVED LIGHTLY SEDATED, ON VENT, R IJ CVL DRESSING CDI, SEE IV FLOWSHEET, L RADIAL A LINE ZEROED, GOOD WAVEFORM, WRIST PROTECTOR IN PLACE, MIDSTERNAL INCISION BARBARA, SUBSTERNAL CTX2 Y'D TOGETHER, 20CM SUCTION NO AIR LEAK, TPM WIRES ATTACHED TO TPM, TPM OFF, RAFAEL DRAIN COMPRESSED, LEW DRAINING YELLOW URINE, RLE HARVEST SITES WITH DRESSING CDI, TEDS/SCDS IN PLACE, SEE SHIFT ASSESSMENT FOR DETAILS
--- NOTE | 2020-08-14 09:36 | NUR ---
dr rodriguez in unit for rounds, orders to stop propofol and start cpap trials, rt aware
--- NOTE | 2020-08-14 12:07 | NUR ---
1200 PT EXTUBATED AND RESTRAINTS REMOVED, PLACED ON BIPAP BY RT
--- NOTE | 2020-08-14 12:52 | NUR ---
Nutrition Reassessment/Follow-up: POD 1 CABG. Extubated this AM. Diet: Clear Liquid -> Carb Consistent/Low Carb Wt: 279.9# (08/14)Adj BW: 152.5# Labs noted: Glu 94, Alb 2.4 Meds noted: Humulin, Lasix, Protonix, Senokot, Colace, electrolyte protocol Est needs: 9709-5810 kcal/day (25-30 kcal/kg adj BW) 70-90 g protein/day (1-1.3 g/kg adj BW) 9729-4222 mL fluid/day (1 mL/kcal) or per MD -Rec advance diet as tolerated as medically feasible. -Monitor wt. -RD follow-up: 08/17
--- NOTE | 2020-08-14 14:14 | OP ---
PATIENT NAME: ELI ABRAHAM MEDICAL RECORD: [id number] :63 LOCATION:[facility] ADMISSION DATE:08/10/20 SURGEON: EVARISTO SCOTT MD DATE OF OPERATION: 08/13/2020 SURGEON: Evaristo Scott MD PROCEDURE PERFORMED: 1. Coronary artery bypass graft times 3 (left internal mammary artery to LAD, reverse saphenous vein graft from aorta to ramus intermedius, aorta to posterolateral branch of right coronary artery). 2. Endoscopic saphenous vein harvest. PREOPERATIVE DIAGNOSES: Coronary artery disease with rest angina, morbid obesity, chronic obstructive pulmonary disease with hypercapnia, uncontrolled diabetes mellitus. POSTOPERATIVE DIAGNOSES: Coronary artery disease with rest angina, morbid obesity, chronic obstructive pulmonary disease with hypercapnia, uncontrolled diabetes mellitus. ANESTHESIA: General endotracheal anesthesia. SPECIMENS: 1. Left internal mammary artery lymph node for frozen section, benign. 2. Spherical and lobular firm anterior mediastinal mass consistent with thymus, returned normal benign thymus. 3. Mediastinal lymph node appeared anthracotic and sent for permanent specimen. COMPLICATIONS: None. CONDITION: Stable. DISPOSITION: CV ICU. BLOOD LOSS: Total cardiopulmonary bypass with Cell Saver retransfusion. FINDINGS: 1. Transesophageal echocardiography confirmed increased left atrium size without significant mitral regurgitation. Normal left ventricular end-diastolic cavity and normal ejection fraction. 2. Atrial fibrillation on right atrial cannulation. The patient from cardiopulmonary bypass in sinus rhythm on amiodarone, but had bradycardia requiring pacing after transfer from the operative bed to the transportation stretcher and was paced briefly. Amiodarone was discontinued. 3. Good quality greater saphenous vein with smaller caliber portion used for the ramus graft and a moderate caliber portion used for the inferior wall graft. 4. Severe distal disease in all vessels. 5. LAD 1.5 mm deep in the epicardial fat and beyond the stent it was a 1.5 mm vessel with severe disease. The left internal mammary artery had good flow, good Doppler signal after anastomosis and after reversal of heparin. 6. Ramus intermedius 1.5 mm with severe disease. The mid vessel was intramyocardial. There were no sizable obtuse marginal targets identified lateral to this vessel. 7. Larger right coronary artery branch was the posterolateral 1.5 with severe OPERATIVE REPORT [id number] ELI ABRAHAM disease. PDA was significantly smaller. 8. Significant plaque in the distal anterior ascending aorta and arch. OPERATIVE INDICATION: Coronary artery disease and angina. DESCRIPTION OF PROCEDURE: The patient was brought to the operating suite. General anesthesia was obtained. The patient was prepped and draped. Greater saphenous vein was harvested endoscopically from right lower extremity. Side branches were divided with electrocautery. The vessel was ligated proximally and distally, and removed. Side branches were tied. Thin sites were oversewn. The leg was irrigated and closed in 2 layers. Median sternotomy incision was made. Subcutaneous tissue was divided with electrocautery. Sternum was divided with a saw. Left hemisternum was elevated. Left pleural cavity was entered. Left internal mammary artery and vein was taken down as a pedicle graft. Sternal retractor was placed. Pericardium was opened. Thymic biopsy was performed. The heparin was given. Pericardium was opened. The aorta was cannulated. Cannulation below the plaque in the ascending aorta. Dual-stage venous cannula was inserted and the patient went into atrial fibrillation, remained hemodynamically stable. The internal mammary clipped distally and made ready for anastomosis. The patient was placed on cardiopulmonary bypass after activated clotting time was appropriately elevated. Sites for distal anastomosis were selected. The patient was cooled. Antegrade cardioplegia cannula was inserted. Crossclamp was placed. Cardioplegia was given antegrade and this was repeated at 20-minute intervals including down the completed vein grafts. Distal anastomosis was performed in standard technique. Proximal anastomosis with single cross-clamp technique. With the patient in Trendelenburg position, the cross clamp was removed. Aortic root was de-aired. Proximal anastomoses were tied down. Vein grafts were de-aired and flow restored. Proximal and distal anastomotic sites inspected for bleeding. The patient returned to spontaneous rhythm. Atrial and ventricular pacing wires were placed. The patient was hemodynamically stable, fully rewarmed and weaned from cardiopulmonary bypass and was stable. The patient was decannulated. The cannula sites were oversewn. Protamine was given. Thorough irrigation was undertaken. The graft lay appropriately. The drains were placed in the mediastinum and left pleural cavity. Pericardial fat loosely reapproximated in 2 sites. Left chest evacuated and irrigated. Internal mammary harvest site was inspected for bleeding. Sternum was closed with wires and sternal plate. The patient was stable. Chest closed. Interrupted sutures were used on the lower fascia, running suture on the mid fascia, two layers of subcutaneous and subcuticular Dermabond. The patient is stable to the ICU. TRANSINT:[id number] Voice Confirmation ID: [id number] DOCUMENT ID: [id number] OPERATIVE REPORT [id number] ELI ABRAHAM DANIEL W MD at 1414 CC: IVY MAR M.D. and ARLINE BURGOS MD [id number] DICTATION DATE: 08/13/20 1506 TANK CLEANER: 08/13/20 1802 ADM IN [facility] [address] [place] [address]
--- NOTE | 2020-08-14 15:09 | NUR ---
A LINE DCD TIP INTACT
[2020-08-15] VITALS (42 sets, daily range): BP systolic 80–134; BP diastolic 22–59
[2020-08-15 07:07] LABS: BASOPHILS 0.1 % (0-2); EOSINOPHILS 0.5 % (0-7); HEMATOCRIT 30.2 % (36.0-48.0); HEMOGLOBIN 9.5 g/dL (12-16); IMMATURE GRANULOCYTES 0.5 % (0-5); LYMPHOCYTE ABS# 2.07 10x3/uL (1.18-3.74); LYMPHOCYTES 11.2 % (15-50); MCH 27.7 pg (26.0-34.0); MCHC 31.5 g/dL (31.0-37.0); MEAN PLATELET VOLUME 11.1 fL (7.4-10.4); MONOCYTES 8.5 % (2-11); NEUTROPHILS 79.2 % (40-80); RBC 3.43 10x6/uL (4.00-5.40); RDW 15.2 % (11.5-14.5); WBC 18.5 10x3/uL (4.8-10.8)
[2020-08-15 07:09] LABS: ALBUMIN 2.4 g/dL (3.4-5.0); ANION GAP 12.4 mmol/L (8-16); BILIRUBIN - TOTAL 0.53 mg/dL (0.2-1.3); CALCIUM 8.4 mg/dL (8.5-10.1); CARBON DIOXIDE 25.6 mmol/L (21.0-32.0); CREATININE - SERUM 1.1 mg/dL (0.6-1.3); MAGNESIUM - SERUM 2.3 mg/dL (1.8-2.4); PHOSPHOROUS 3.1 mg/dL (2.5-4.9)
[2020-08-15 07:19] LABS: PLATELET COUNT 123 10x3/uL (130-400)
--- NOTE | 2020-08-15 11:05 | NUR ---
0800-PT IN BED REFUSING TO SIT UP IN CHAIR-STATES PAIN INTOLERABLE-LOUD CRYING OUT WITH BP CUFF INFLATION-AUSCULTATION TO CHEST AND ABD-SCREAMS"OH MY ... THAT HURTS"--PUSHED AWAY CARDIAC SPLINT PILLOW WHEN STRESSED TO TAKE DB AND C-STATED I CAN'T DO THAT- 844-PERCOCET 10MG PO GIVEN AND HOME MED GABOPENTIN-ADDITIONAL STAFF BROUGHT IN RM AND ASSISTED TO SIDE OF BED FOR BREAKFEST TRAY-CONSULTED PHYSICAL THERAPY 914-AMBULATED AT SIDE OF BED WITH PHYSICAL THERAPY-REFUSED CHAIR-STATED DOES NOT FIT HER AND CAUSES SEVERE DISCOMFORT-AGREED TO SIT AT SIDE OF BED AND STRESSED NEED FOR INCENTIVE 929-PT ON TELEPHONE WITH SIGNIFICANT OTHER-NO INCENTIVE DONE-RT AT BEDSIDE-RESP RX STARTED -PT REQUESTED TO LAY DOWN FOR TREATMENT-NEGATED WITH REASONING OF BETTER RESULTS SITTING UP DURING UPDRAFT-DR JOHNSON AT BEDSIDE AND STRESSED TO PT NEED TO PARTICIPATE WITH POST TREATMENT-OR RISK HAVING BREATHING TUBE PLACE BACK AND PLACED ON VENTILATOR-PT APPEARED CONCERNED 1029-ASSISTED TO SUPINE AT THIS TIME-PT STATED PAIN MED HELPING-STRESSED TO USE THE INCENTIVE AT THIS TIME-IGNORED BY PT-SAME CLOSED EYES -SR ON MONITOR-SPLINTING PILLOW PLACED ON CHEST
--- NOTE | 2020-08-15 16:12 | NUR ---
1200-GRANDDAUGHTER AT BEDSIDE-LUNCH TRAY BROUGHT-ASSISTED PT TO SIDE OF BED FOR MEAL-NORCO 10 PO GIVEN FOR 01/17 PAIN-O2 PLACED BACK ON PT-SAT DECREASED TO 88 1230-BEDSIDE WALKER BROUGHT TO PT -REMAINS SITTING UP AT SIDE OF BED-STATED NAUSEA-ZOFRAN GIVEN-ENCOURAGED AND STRESSED NEED FOR INCREASED AMBULATION-DR SCOTT AT BEDSIDE-CHEST TUBE TO WATER SEAL-AND ALSO STRESSED NEED FOR INCENTIVE--PT DID NOT RESPOND 1245-STOOD UP AT SIDE OF BED WITH WALKER-SON AT BEDSIDE-ENCOURAGED TO MARCH IN PLACE--COMPLIED X10MIN NOTED NIBP POST TREATMENT- 1315-104/58-SUPINE BED
--- NOTE | 2020-08-15 18:23 | NUR ---
1600-PT CALLING OUT LOUDLY IN PAIN-STATED CAN'T TAKE THIS ANYMORE-01/17-CHEST/LEGS/??BUTT??-HR 87- PRESENT-NORCO 10 PO GIVEN ORDERED 1630-ASSISTED PT TO SIDE OF BED-PT MAKING NO EFFORT TO ASSIST SELF-STATING TO PICK HER UP- PRESENT-INFORMED NO AND DIRECTION GIVEN TO MANAGE INDEPENDENTLY- PRESENT AND STATED CAN'T PICK YOU UP AT HOME-PT BECAME IN APPROPRIATE WITH BALANCE-FLOPPING HERSELF BACK IN BED-HAD LEAVE RM -PT ABLE TO SIT UP WITH MINIMAL ASSISTANCE-DINNER TRAY PROVIDED-DAUGHTER PRESENT AND REMAINS WITH PT TO SUPERVISE- 165-ASSISTED TO BED-PT STATED I AM DRUGGED-SAT 90%-PLACED ON BIPAP-SAT INCREASED TO 99%-NEOSYNEPHRINE GTT STARTED TO MAINTAIN SYS >100--NORCO 10 AND MORPHINE IV D/C'D
--- NOTE | 2020-08-15 23:33 | NUR ---
NEOSYNEPHRINE TITRATED PER PROTOCOL FOR MEAN BP CURRENT AT 0.7 MCG/MIN INSULIN GTT ON HOLD X 1 HOUR FOR BS 105. Jamila TUCKER RN
[2020-08-16] VITALS (88 sets, daily range): BP systolic 77–147; BP diastolic 12–74
[2020-08-16 05:15] LABS: HEMATOCRIT 27.5 % (36.0-48.0); MCH 28.2 pg (26.0-34.0); MCHC 32.7 g/dL (31.0-37.0); MCV 86.2 fL (80.0-100.0); MEAN PLATELET VOLUME 11.2 fL (7.4-10.4); RBC 3.19 10x6/uL (4.00-5.40); RDW 15.1 % (11.5-14.5); WBC 23.8 10x3/uL (4.8-10.8)
[2020-08-16 05:27] LABS: ALBUMIN 2.3 g/dL (3.4-5.0); ANION GAP 12.4 mmol/L (8-16); BILIRUBIN - TOTAL 0.33 mg/dL (0.2-1.3); CALCIUM 8.2 mg/dL (8.5-10.1); CARBON DIOXIDE 24.9 mmol/L (21.0-32.0); CREATININE - SERUM 1.3 mg/dL (0.6-1.3); POTASSIUM - SERUM 4.3 mmol/L (3.5-5.1)
--- NOTE | 2020-08-16 12:42 | NUR ---
1030: R IJ SITE LEAKING. IV STARTED WITH 22G IN R FOREARM. 1130: DR. SCOTT HERE. MEDISTINAL CHEST TUBES DC'D BY DR. SCOTT. 1145: R IJ DC'D. MANUAL PRESSURE HELD X 3 MIN AND SITE DRESSED WITH 4X4 AND TEGADERM.
--- NOTE | 2020-08-16 16:50 | NUR ---
6935: DR. HUSSEIN PAGED REGARDING BLOOD SUGAR OF 354. COVERED WITH 16 UNITS PER SLIDING SCALE WHILE AWAITING CALL BACK.
[2020-08-17] VITALS (84 sets, daily range): BP systolic 74–120; BP diastolic 24–77
--- NOTE | 2020-08-17 08:00 | TEE ---
PATIENT:ELI ABRAHAM MEDICAL RECORD: [id number] LOCATION:[place] [address] AGE OF PATIENT: 54 ADMISSION DATE: 08/10/20 SEX: F REFERRING PHYSICIAN: INTERPRETING PHYSICIAN: ANIKET URIOSTEGUI MD TRANSESOPHAGEAL ECHOCARDIOGRAM Date: 08/13/20 THOM CHARGE Y INDICATIONS: CABG PREMEDICATIONS: PATIENT'S RESPONSE PROCEDURE DOPPLER MEASUREMENTS: LVIT LA PA 68 RA LVOT 84 RVOT 67 Asc. Ao 147 AV Gradient Peak 8.7 AV Mean 4.1 AV Area 1.4 MV Gradient Peak 3.9 MV Mean 2.3 MV Area INTERPRETATION: Doppler: 2-D: COLOR FLOW DOPPLER NORMAL SALINE STUDY: MISCELLANOUS: DIAGNOSIS: PLAN: General Internist:3 Dr. [employer] Receptionist: Marielena STOLL COMMENTS: DATE OF SERVICE: 08/14/2020 PROCEDURE: Intraoperative THOM. Preop; normal LV wall motion, normal wall thickening, calculated EF 55%. Aortic valve is tricuspid with good valve excursion. No significant AI. Left atrium appears normal. Mitral valve appears normal. Trace to mild MR. Postop; good wall motion, good wall thickening. Estimated EF 55%. Aortic valve is tricuspid with good valve excursion. Left atrium appears normal. Mitral valve appears TRANSESOPHAGEAL ECHOCARDIOGRAM REPORT [id number] ELI ABRAHAM normal. Trace MR. Right-sided chamber grossly normal. Mild TR. TRANSINT:[id number] Voice Confirmation ID: [id number] DOCUMENT ID: [id number] at 0800 CC: [id number] DICTATION DATE: 08/14/20 1140 JTAC: 08/14/20 1152 ADM IN [place] [facility] [id number] [place] [address]
[2020-08-17 08:02] LABS: HEMATOCRIT 27.3 % (36.0-48.0); HEMOGLOBIN 8.7 g/dL (12-16); MCH 27.4 pg (26.0-34.0); MCHC 31.9 g/dL (31.0-37.0); MCV 86.1 fL (80.0-100.0); MEAN PLATELET VOLUME 11.2 fL (7.4-10.4); RBC 3.17 10x6/uL (4.00-5.40); RDW 14.9 % (11.5-14.5)
[2020-08-17 08:12] LABS: ALBUMIN 2.2 g/dL (3.4-5.0); ANION GAP 11.9 mmol/L (8-16); BILIRUBIN - TOTAL 0.3 mg/dL (0.2-1.3); CARBON DIOXIDE 25.2 mmol/L (21.0-32.0); CREATININE - SERUM 1.1 mg/dL (0.6-1.3); POTASSIUM - SERUM 4.1 mmol/L (3.5-5.1); PROTEIN - SERUM 5.5 g/dL (6.4-8.2)
[2020-08-17 08:15] LABS: WBC 13.3 10x3/uL (4.8-10.8)
--- NOTE | 2020-08-17 10:40 | NUR ---
ORDERS RECEIVED FROM DR. MERIDA. CONTINUE ON INSULIN DRIP AT THIS TIME. NO SLIDING SCALE. WILL CALL DR. MERIDA AT 5PM TODAY AND GIVE UPDATE ON BLOOD GLUCOSE CONTROL.
--- NOTE | 2020-08-17 11:56 | NUR ---
Nutrition Follow-up: POD 4 CABG. Fair appetite/PO intake. C/o nausea; reports vomiting yesterday. -BM; +flatus. Glu has been elevated; on insulin drip. Diet: Diabetic PO intake: 50% x 3 meals (08/16) Wt: 288.8# (08/17) Labs noted: Na 131, Glu 110, Ca 8.0, Alb 2.2 Meds noted: Huulin, Senokot, Colace, Protonix, Lactulose, electrolyte protocol -Encourage PO intake and honor food preferences within diet restrictions. -Monitor wt. -RD follow-up: 08/19
[2020-08-17 14:14] LABS: MAGNESIUM - SERUM 2.6 mg/dL (1.8-2.4); PHOSPHOROUS 2.6 mg/dL (2.5-4.9); POTASSIUM - SERUM 3.9 mmol/L (3.5-5.1)
--- NOTE | 2020-08-17 14:44 | NUR ---
AMBULATED TO BATHROOM WITH ASSIT. USES WALKER.
--- NOTE | 2020-08-17 15:21 | NUR ---
LARGE BM NOTED AT THIS TIME. ASSISTED BACK TO CHAIR. WILL CONTINUE TO MONITOR.
--- NOTE | 2020-08-17 16:05 | NUR ---
ASSISTED PT BACK TO BED. INCONTINENT EPISODE OF STOOL NOTED AT THIS TIME. PERICARE PROVIDED. MEPILEX FROM BUTTOCKS REMOVED. APPEARS TO HAVE A BLISTER THAT HAS POPPED. NEW MEPILEX APPLIED TO SITE TO PROTECT SKIN. BLISTED NOTED TO LEFT SIDE. NO FURTHER NEEDS AT THIS TIME.
--- NOTE | 2020-08-17 18:14 | NUR ---
BLOOD GLUCOSE 165. 40 UNITS OF LANTUS GIVEN PER ORDER. INSULIN DRIP TURNED OFF PER DR. MERIDA ORDERS. WILL RECHECK SUGAR IN 4HR.
[2020-08-17 20:07] LABS: MAGNESIUM - SERUM 2.5 mg/dL (1.8-2.4); PHOSPHOROUS 2.8 mg/dL (2.5-4.9); POTASSIUM - SERUM 4.1 mmol/L (3.5-5.1)
[2020-08-18] VITALS (73 sets, daily range): BP systolic 83–152; BP diastolic 36–91
[2020-08-18 02:48] LABS: HEMATOCRIT 29.1 % (36.0-48.0); HEMOGLOBIN 9.6 g/dL (12-16); MCH 28.2 pg (26.0-34.0); MCV 85.6 fL (80.0-100.0); MEAN PLATELET VOLUME 10.8 fL (7.4-10.4); RBC 3.4 10x6/uL (4.00-5.40); RDW 15.3 % (11.5-14.5)
[2020-08-18 02:49] LABS: WBC 17.4 10x3/uL (4.8-10.8)
[2020-08-18 03:02] LABS: ALBUMIN 2.4 g/dL (3.4-5.0); ANION GAP 11.7 mmol/L (8-16); BILIRUBIN - TOTAL 0.42 mg/dL (0.2-1.3); CALCIUM 8.2 mg/dL (8.5-10.1); CARBON DIOXIDE 26.5 mmol/L (21.0-32.0); CREATININE - SERUM 0.9 mg/dL (0.6-1.3); MAGNESIUM - SERUM 2.6 mg/dL (1.8-2.4); PHOSPHOROUS 2.6 mg/dL (2.5-4.9); POTASSIUM - SERUM 4.2 mmol/L (3.5-5.1); PROTEIN - SERUM 5.8 g/dL (6.4-8.2)
[2020-08-18 08:50] LABS: MAGNESIUM - SERUM 2.6 mg/dL (1.8-2.4); PHOSPHOROUS 2.6 mg/dL (2.5-4.9); POTASSIUM - SERUM 4.4 mmol/L (3.5-5.1)
--- NOTE | 2020-08-18 10:38 | NUR ---
PT IN BED. CALL LIGHT IN REACH. PT C/O HEADACHE AND ABD PAIN WILL ASSESS FOR WHEN PRN PAIN MED CAN BE GIVEN. PT ALSO REQUESTING NAUSEA MEDICATION WHEN PAIN MED IS GIVEN
[2020-08-18 14:28] LABS: MAGNESIUM - SERUM 2.5 mg/dL (1.8-2.4); PHOSPHOROUS 2.3 mg/dL (2.5-4.9); POTASSIUM - SERUM 4.2 mmol/L (3.5-5.1)
[2020-08-18 20:09] LABS: MAGNESIUM - SERUM 2.6 mg/dL (1.8-2.4); PHOSPHOROUS 2.4 mg/dL (2.5-4.9); POTASSIUM - SERUM 4.2 mmol/L (3.5-5.1)
[2020-08-19] VITALS (32 sets, daily range): BP systolic 85–114; BP diastolic 29–77
[2020-08-19 02:47] LABS: BASOPHILS 0.2 % (0-2); EOSINOPHILS 3.8 % (0-7); HEMATOCRIT 27.5 % (36.0-48.0); LYMPHOCYTE ABS# 2.06 10x3/uL (1.18-3.74); MCHC 32.7 g/dL (31.0-37.0); MCV 85.4 fL (80.0-100.0); MEAN PLATELET VOLUME 11.1 fL (7.4-10.4); MONOCYTES 7.7 % (2-11); NEUTROPHIL ABS# 7.93 10x3/uL (1.56-6.13); NEUTROPHILS 69.3 % (40-80); PLATELET COUNT 197 10x3/uL (130-400); RBC 3.22 10x6/uL (4.00-5.40); RDW 15.4 % (11.5-14.5)
[2020-08-19 02:49] LABS: WBC 11.4 10x3/uL (4.8-10.8)
[2020-08-19 02:52] LABS: MAGNESIUM - SERUM 2.5 mg/dL (1.8-2.4); PHOSPHOROUS 2.2 mg/dL (2.5-4.9); POTASSIUM - SERUM 3.8 mmol/L (3.5-5.1)
[2020-08-19 10:10] LABS: MAGNESIUM - SERUM 2.5 mg/dL (1.8-2.4); PHOSPHOROUS 2.4 mg/dL (2.5-4.9)
--- NOTE | 2020-08-19 12:30 | NUR ---
Nutrition Follow-up: POD 6 CABG. Eating well. Glu elevated; noted Lantus increased and insulin drip restarted. Diet: Diabetic, Dental Soft PO intake: 100% x 3 meals yesterday Wt: 286# (08/19) Labs noted: Glu 216 Meds noted: Humulin, Lantus, Florajen, Lasix, Senokot, Colace, Protonix, electrolyte protocol -RD follow-up: 08/21
[2020-08-19 14:50] LABS: MAGNESIUM - SERUM 2.3 mg/dL (1.8-2.4); PHOSPHOROUS 2.2 mg/dL (2.5-4.9); POTASSIUM - SERUM 3.6 mmol/L (3.5-5.1)
[2020-08-19 20:33] LABS: MAGNESIUM - SERUM 2.3 mg/dL (1.8-2.4); PHOSPHOROUS 2.7 mg/dL (2.5-4.9); POTASSIUM - SERUM 4.1 mmol/L (3.5-5.1)
--- NOTE | 2020-08-19 23:43 | NUR ---
COMPLETE CHG BATH AND LINEN CHANGE PROVIDED.
[2020-08-20] VITALS (18 sets, daily range): BP systolic 83–152; BP diastolic 47–82
[2020-08-20 02:39] LABS: HEMATOCRIT 25.5 % (36.0-48.0); HEMOGLOBIN 8.2 g/dL (12-16); MCH 27.6 pg (26.0-34.0); MCHC 32.2 g/dL (31.0-37.0); MCV 85.9 fL (80.0-100.0); MEAN PLATELET VOLUME 11.3 fL (7.4-10.4); RBC 2.97 10x6/uL (4.00-5.40); RDW 15.5 % (11.5-14.5); WBC 11.6 10x3/uL (4.8-10.8)
[2020-08-20 03:15] LABS: MAGNESIUM - SERUM 2.3 mg/dL (1.8-2.4); PHOSPHOROUS 2.6 mg/dL (2.5-4.9)
--- NOTE | 2020-08-20 09:34 | NUR ---
PT AMB 150 FT WITH PT AND WALKER.
--- NOTE | 2020-08-20 15:09 | NUR ---
PM WIRES AND RAFAEL DRAIN PULLED BY DR SCOTT. PT MALCOM WELL.
[2020-08-20 15:29] LABS: MAGNESIUM - SERUM 2.2 mg/dL (1.8-2.4); PHOSPHOROUS 2.9 mg/dL (2.5-4.9); POTASSIUM - SERUM 3.8 mmol/L (3.5-5.1)
--- NOTE | 2020-08-20 18:14 | NUR ---
pt keeps taking bp cuff off. pt STATES " HURTS MY ARM ON LUE AND RUE HAS IV IN THE WAY. BP CUFF REPLACED OFTEN AND TAKEN BACK OFF AFTER BP RESULTED.
--- NOTE | 2020-08-20 19:00 | NUR ---
BEDSIDE SHIFT REPORT RECEIVED, PT AAOX4, SITTING IN RECLINER. REQUEST BATH TONIGHT. SP02 95% ON ROOM AIR. 22G TO RIGHT WRIST SL. 18G TO RIGHT UPPER ARM, BENT AT INSERTION SITE AND OUT OF PLACE, PIV D/C'D WITH TIP INTACT, PT DECLINES TO HAVE 2ND PIV SITED AT THIS TIME. CALL LIGHT WITHIN REACH, PT DENIES COMPLAINTS OR UNMET NEEDS AT THIS TIME.
--- NOTE | 2020-08-20 21:00 | NUR ---
FULL BATH GIVEN WITH PT IN CHAIR, HAIR WASHED, LINEN CHANGED. DRESSING TO COCCYX REMOVED, BLANCHABLE REDNESS AROUND OPEN AREA, PT REPORTS SORENESS, OINTMENT AND NEW MEPILEX APPLIED. NEW TEDS PLACED AND SCD'S ON AND ACTIVATED. ASSISTED PT TO BED AND ON SIDE FOR COMFORT AND PRESSURE RELIEF, BED ALARM ON AND ACTIVATED, CALL LIGHT AND PERSONAL BELONGINGS WITHIN REACH. WILL CONT TO ASSESS.
[2020-08-20 21:44] LABS: MAGNESIUM - SERUM 2.2 mg/dL (1.8-2.4); PHOSPHOROUS 2.7 mg/dL (2.5-4.9); POTASSIUM - SERUM 3.9 mmol/L (3.5-5.1)
[2020-08-21] VITALS (21 sets, daily range): BP systolic 95–169; BP diastolic 40–80
[2020-08-21 02:53] LABS: % SATURATION 25 % (15-55); IRON 56 ug/dl (35-150); TOTAL IRON BIND CAPACITY 216 ug/dl (260-445); UNSAT IRON BIND CAPACITY 160 ug/dl (150-375)
[2020-08-21 03:06] LABS: ALBUMIN 2.2 g/dL (3.4-5.0); ANION GAP 7.9 mmol/L (8-16); BILIRUBIN - TOTAL 0.19 mg/dL (0.2-1.3); CALCIUM 7.9 mg/dL (8.5-10.1); CREATININE - SERUM 1.1 mg/dL (0.6-1.3); MAGNESIUM - SERUM 2.1 mg/dL (1.8-2.4); PHOSPHOROUS 3.1 mg/dL (2.5-4.9); POTASSIUM - SERUM 3.9 mmol/L (3.5-5.1); PROTEIN - SERUM 6.3 g/dL (6.4-8.2)
[2020-08-21 08:45] LABS: BASOPHILS 0.2 % (0-2); EOSINOPHILS 3.4 % (0-7); HEMATOCRIT 28.1 % (36.0-48.0); HEMOGLOBIN 8.6 g/dL (12-16); IMMATURE GRANULOCYTES 2.4 % (0-5); LYMPHOCYTE ABS# 2.52 10x3/uL (1.18-3.74); LYMPHOCYTES 23.7 % (15-50); MCH 27.3 pg (26.0-34.0); MCHC 30.6 g/dL (31.0-37.0); MEAN PLATELET VOLUME 11.5 fL (7.4-10.4); MONOCYTES 7.1 % (2-11); NEUTROPHIL ABS# 6.71 10x3/uL (1.56-6.13); NEUTROPHILS 63.2 % (40-80); RBC 3.15 10x6/uL (4.00-5.40); RDW 15.9 % (11.5-14.5); WBC 10.6 10x3/uL (4.8-10.8)
[2020-08-21 08:49] LABS: MCV 89.2 fL (80.0-100.0); PLATELET COUNT 221 10x3/uL (130-400)
--- NOTE | 2020-08-21 12:33 | NUR ---
Nutrition Reassessment/Follow-up: POD 8 CABG. Overall good PO intake. Reports last BM was 5-6 days ago; +flatus. C/o mild nausea without vomiting. Per overnight nursing assessment, pt with stage 2 wound to coccyx. Diet: Carb Consistent PO intake: 84% avg x 7 meals Wt: 287# (08/21)Adj BW: 154.3# Labs noted: Na 133, Glu 174, Ca 7.9, Alb 2.2 Meds noted: Lasix, Lantus, Florajen, Senokot, Colace, Protonix, Zofran, electrolyte protocol Est Needs: 2410-9123 kcal/day (30-35 kcal/kg adj BW) 85-105 g protein/day (1.2-1.5 g/kg adj BW) 6488-1817 mL fluid/day (1 mL/kcal) or per MD Nutrition Diagnosis: -Altered nutrition-related lab values R/T DM AEB A1c 8.8, elev Glu. -Obesity R/T presumably excessive energy intake AEB BMI 52.5. -Increased calorie/protein needs R/T wound healing AEB s/p CABG, stage 2 wound to coccyx reported. Nutrition Intervention: -Encourage PO intake and honor food preferences within diet restrictions. -May consider Dominik BID to promote wound healing if pt agreeable. -Monitor wt & labs. -RD follow-up: 08/24
--- NOTE | 2020-08-21 19:20 | NUR ---
BEDSIDE SHIFT REPORT COMPLETE, PT AAOX4. SITTING IN RECLINER, PT HAD LARGE INCONT STOOL, BROWN IN COLOR, PARTIAL BATH GIVEN WITH CHG, GOWN CHANGED, BARRIER CREAM APPLIED TO BUTTOCKS AND NEW MEPILEX APPLIED. ASSISTED PT TO BED AND POSTIONED FOR COMFORT. CALL LIGHT AND PERSONAL BELONGINGS WITHIN REACH, WILL CONT TO ASSESS.
[2020-08-22] VITALS (22 sets, daily range): BP systolic 100–163; BP diastolic 43–91
--- NOTE | 2020-08-22 01:18 | NUR ---
PT WOKE WITH PAIN IN LEFT WRIST, ASSISTED TO BATHROOM THEN TO RECLINER. GAVE PT ICEPACK FOR WRIST AND PRN NORCO, PT SITTING UP WATCHING TV, CALL LIGHT AND PERSONAL ITEMS WITHIN REACH.
--- NOTE | 2020-08-22 03:00 | NUR ---
LAB CALLED TO REPORT LOW GLUCOSE OF 69, GAVE PT MILK AND CRACKERS, WILL RECHECK LATER DURING SHIFT, PT ASYMPTOMTIC AT THIS TIME. STANDING WEIGHT TAKEN, PT 286.7. ASSISTED BACK TO BED, POSTIONED FOR COMFORT AND PRESSURE RELIEF. CALL LIGHT WITHIN REACH.
[2020-08-22 03:15] LABS: ALBUMIN 2.4 g/dL (3.4-5.0); ANION GAP 12.4 mmol/L (8-16); BILIRUBIN - TOTAL 0.26 mg/dL (0.2-1.3); CALCIUM 8.5 mg/dL (8.5-10.1); CARBON DIOXIDE 27.5 mmol/L (21.0-32.0); CREATININE - SERUM 0.9 mg/dL (0.6-1.3); POTASSIUM - SERUM 3.9 mmol/L (3.5-5.1); PROTEIN - SERUM 6.5 g/dL (6.4-8.2)
[2020-08-22 03:17] LABS: BASOPHILS 0.3 % (0-2); EOSINOPHILS 3.2 % (0-7); HEMATOCRIT 27.5 % (36.0-48.0); HEMOGLOBIN 8.7 g/dL (12-16); IMMATURE GRANULOCYTES 4.5 % (0-5); LYMPHOCYTE ABS# 2.28 10x3/uL (1.18-3.74); LYMPHOCYTES 21.6 % (15-50); MCH 27.7 pg (26.0-34.0); MCHC 31.6 g/dL (31.0-37.0); MCV 87.6 fL (80.0-100.0); MEAN PLATELET VOLUME 10.7 fL (7.4-10.4); MONOCYTES 8.5 % (2-11); NEUTROPHIL ABS# 6.52 10x3/uL (1.56-6.13); NEUTROPHILS 61.9 % (40-80); PLATELET COUNT 247 10x3/uL (130-400); RBC 3.14 10x6/uL (4.00-5.40); RDW 15.8 % (11.5-14.5); WBC 10.5 10x3/uL (4.8-10.8)
--- NOTE | 2020-08-22 07:00 | NUR ---
RECEIVED BEDSIDE REPORT AND ASSUMED CARE OF PATIENT. PATIENT SITTING UP IN BEDSIDE CHAIR, VSS. ON NC AT 2 LPM WITH SOP2 - 94%, BBS CLEAR BUT DIMINISHED, CM - SR RATE OF 69, IV 22 GA TO RIGHT WRIST, NSL. NOTED SWELLING TO LEFT WRIST, PATIENT STATES HAD A FALL, KNEES BUCKLED, A FEW DAYS AGO, STATES XRAY DID NOT SHOW A BROKEN BONE. STATES WILL USE CALL LIGHT AND GET ASSISTANCE BEFORE TRYING TO GET UP. PATIENT ALERT AND ORIENTED X 4. HEAD TO TOE ASSESSMENT COMPLETED.
--- NOTE | 2020-08-22 08:06 | NUR ---
PATIENT GIVEN BREAKFAST TRAY. NO NEEDS AT THIS TIME.
--- NOTE | 2020-08-22 09:23 | NUR ---
PATIENT UP WALKING IN HALLWAY WITH WALKER AND PT.
--- NOTE | 2020-08-22 09:43 | NUR ---
PATIENT WALKS APPROXIMATELY 115 FT WITH PT, UTILIZES RESTROOM AND REQUESTS TO GO TO BED, STATES BEEN UP SINCE 3:30.
--- NOTE | 2020-08-22 10:00 | NUR ---
DR. SCOTT AT ROOM UPDATED AND EXAMIENS PATIENT.
--- NOTE | 2020-08-22 10:30 | NUR ---
DR. BAUTISTA AT ROOM UPDATED AND EXAMINES PATIENT.
--- NOTE | 2020-08-22 10:50 | NUR ---
DR. MERIDA AT ROOM UPDATED AND EXAMINES PATIENT.
--- NOTE | 2020-08-22 11:05 | NUR ---
PATIENT RESTING QUIETLY, EYES CLOSED, EASILY AROUSED BY VOICE. REASSESSMENT COMPLETED.
--- NOTE | 2020-08-22 11:59 | NUR ---
ASSISTED UP TO BEDSIDE CHAIR FOR LUNCH. VSS. NO NEEDS AT THIS TIME.
--- NOTE | 2020-08-22 15:15 | NUR ---
REASSESSMENT COMPLETED. MEDS AND PRN PAIN MEDS PER MAR. VSS.
--- NOTE | 2020-08-22 19:00 | NUR ---
BEDSIDE SHIFT REPORT RECIEVED, PT RESTING IN RECLINER WATCHING TV. DISCUSSED PLAN OF CARE. SP02 92% ON ROOM AIR WHILE AR REST AND AWAKE. 22G TO RIGHT WRIST ASSESSED AND FLUSHES EASILY. PT REQUESTS FULL BATH TONIGHT, MADE PLAN TO GIVE BATH AROUND 2100. CALL LIGHT WITHIN REACH, PT DENIES COMPLAINTS OR UNMET NEEDS AT THIS TIME.
--- NOTE | 2020-08-22 21:30 | NUR ---
PT GIVEN FULL BATH WHILE IN RECLINER, HAIR WASHED AND [place] HOSE PLACED, STAGE 2 TO COCCYX APPEARS HEALING, OPEN AREA PINK AND BLANCHABLE, SKIN AROUND WITH DECREASED REDDNESS AND BLANCHABLE, BARRIER CREAM APPLIED AFTER EACH VOID OR BM. PT TOLERATED ACTIVITY WELL. PRN NORCO GIVEN FOR PAIN IN LEFT WRIST AND SORENESS TO BLE. ASSISTED TO BED AND POSTIONED FOR PRESSURE RELIEF AND COMFORT, CALL LIGHT AND PERSONAL BELONGINGS WITHIN REACH, WILL CONT TO MONITOR.
[2020-08-23] VITALS (22 sets, daily range): BP systolic 96–142; BP diastolic 21–69
--- NOTE | 2020-08-23 01:58 | NUR ---
PT WOKE UP, ASSISTED TO BATHROOM, REQUEST TO SIT IN RECLINER, ASSISTED TO RECLINER. GAVE PT CIP OF BROTH AND 3 SALTINE CRACKERS PER PT REQUEST AND PRN NORCO FOR PAIN IN LEFT WRIST AND SORENESS TO BLE. INSTRUCTED PT TO CALL FOR ASSISTANCE BACK TO BED WHEN READY. BEDSIDE TABLE, CALL LIGHT AND PERSONAL BELONGINGS WITHIN REACH.
[2020-08-23 05:07] LABS: BASOPHILS 0.3 % (0-2); EOSINOPHILS 4.1 % (0-7); HEMATOCRIT 26.4 % (36.0-48.0); HEMOGLOBIN 8.3 g/dL (12-16); IMMATURE GRANULOCYTES 2.8 % (0-5); LYMPHOCYTES 24.3 % (15-50); MCH 27.5 pg (26.0-34.0); MCHC 31.4 g/dL (31.0-37.0); MCV 87.4 fL (80.0-100.0); MEAN PLATELET VOLUME 10.2 fL (7.4-10.4); NEUTROPHIL ABS# 7.04 10x3/uL (1.56-6.13); NEUTROPHILS 63.5 % (40-80); PLATELET COUNT 220 10x3/uL (130-400); RBC 3.02 10x6/uL (4.00-5.40); RDW 15.8 % (11.5-14.5); WBC 11.1 10x3/uL (4.8-10.8)
[2020-08-23 05:18] LABS: ALBUMIN 2.3 g/dL (3.4-5.0); ANION GAP 8.8 mmol/L (8-16); BILIRUBIN - TOTAL 0.27 mg/dL (0.2-1.3); CALCIUM 8.5 mg/dL (8.5-10.1); CARBON DIOXIDE 28.3 mmol/L (21.0-32.0); CREATININE - SERUM 0.9 mg/dL (0.6-1.3); POTASSIUM - SERUM 4.1 mmol/L (3.5-5.1); PROTEIN - SERUM 6.2 g/dL (6.4-8.2)
--- NOTE | 2020-08-23 19:10 | MORECARE ---
CASE MANAGEMENT DISCHARGE SUMMARY PATIENT: ELI ABRAHAM UNIT: [id number] ADM DATE: 08/10/20 AGE: 54 : 63 SEX: F ROOM/BED: [place] AUTHOR: AIDAN,DOC PHYSICIAN: REFERRING PHYSICIAN: KEYON HUSSEIN MD DATE OF SERVICE: 08/23/20 Case Management Discharge Planning Summary DCP REVIEW SUMMARY ANTICIPATED D/C DATE: EXPECTED LOS : CASE STATUS: DCP Initiated INITIAL REVIEW: 08/09/2020 INITIAL REVIEWER: Tana Petty FINAL DISCHARGE DISPOSITION: : FINAL REVIEWER: FINAL REVIEW DATE: DCP [employer] Questions [employer] Answers QUESTION: ANSWER : PATIENT: ELI ABRAHAM ENCOUNTER: [id number] MEDICAL RECORD#: [id number] ADMISSION DATE: 08/10/2020 DISCHARGE DATE: ATTENDING MD: KEYON GRACIA : AGE: 54 MARITAL STATUS: M DC PLAN ID: [id number] FACILITY: [facility] PRINTED ON: 08/23/20 19:10 CT All edits/amendments must be made on the electronic document DICTATION DATE: 08/23/201909 MAINTENANCE PLANNER: DM 08/23/201909 RPT#: [id number] DC DATE: STATUS: ADM IN [facility] [address] [place] [address] END OF REPORT
--- NOTE | 2020-08-23 19:20 | MORECARE ---
CASE MANAGEMENT DISCHARGE SUMMARY PATIENT: ELI ABRAHAM UNIT: [id number] ADM DATE: 08/10/20 AGE: 54 : 63 SEX: F ROOM/BED: [facility] AUTHOR: AIDANDOC PHYSICIAN: REFERRING PHYSICIAN: KEYON HUSSEIN MD DATE OF SERVICE: 08/23/20 Case Management Discharge Planning Summary COMMENTS ENTERED DATE: 08/23/20 19:12 CT COMMENT TYPE: Discharge Planning REVIEWER: Tana Petty CM met with patient at bedside and she stated that she lives at home with her and plans to return there upon discharge. Patient states that she has a nebulizer but doesn't have any home 02. Patient states that she has 7 steps to go up to get in her home. Patient states that they are planning to discharge her in am, but she wasn't able to walk in [place] yet d/t sob. Patient insurance doesn't cover rehab it will only cover home health with physical therapy. Patient signed LUZMA for any [facility] and [employer] company as needed. CM will continue to follow and assist as needed with discharge planning / needs. DCP REVIEW SUMMARY ANTICIPATED D/C DATE: EXPECTED LOS : CASE STATUS: DCP Initiated INITIAL REVIEW: 08/09/2020 INITIAL REVIEWER: Tana Petty FINAL DISCHARGE DISPOSITION: : FINAL REVIEWER: FINAL REVIEW DATE: DCP Focus Questions & Answers DCP Screen QUESTION: ANSWER High Risk Factors: : Decreased adherence to treatment plan DCP Evaluation QUESTION: ANSWER Patient gives permission to discuss discharge plans with: (name, relationship and number) : GIANA ABRAHAM -SP- [phone] Patient's ability to cope with chronic illness : d. No chronic illness Patient's current cognitive status: : *Oriented to person, place, situation, time and present Patient and/or caregiver agree upon recommended discharge plan? : Yes Functional screen assessment: : Unable to manage ADLs without immediate ongoing assistance Does the patient have the ability to pay for or attain post discharge needs / services? : Yes Living Arrangements: : Home with Spouse/Significant Other Is there a likelihood that the patient will require additional services to return to the preadmission environment? : Yes Equipment needed for post hospitalization: : Home Oxygen with Nasal Cannula Baseline cognitive status: : *Oriented to person, place, situation, time and present Results of this evaluation have been discussed with: : Patient Preadmission facility can/cannot provide post hospital level of care needs: : Cannot - at same level of care as preadmission Comments: : Patient will need home/ portable 02 and HHS upon discharge Physical environment modification needed / anticipated for discharge: : No Pharmacy name(s): : [facility] Planned post hospital services available for patient? : Yes Does Patient have transportation to get home and to follow-up medical appointments when discharged from the hospital? : Yes Planned post hospital services covered by insurance plan? : Yes Would patient like to participate in any Care Coordination programs (if applicable): : Not applicable Does the patient have electricity at home? : Yes Does the patient have running water in their house? : Yes Equipment in use: : Bedside Commode Equipment in use: : Cane - Quad Equipment in use: : Hospital Bed Equipment in use: : Nebulizer Equipment in use: : Shower Chair Equipment in use: : Walker - Rolling Mental health screen: : No mental health history Psychosocial status: : Adult with physical limitations DCP Re-evaluation QUESTION: ANSWER Would patient like to participate in any Care Coordination programs (if applicable): : Not applicable PATIENT: ELI ABRAHAM ENCOUNTER: [id number] MEDICAL RECORD#: [id number] ADMISSION DATE: 08/10/2020 DISCHARGE DATE: ATTENDING MD: KEYON GRACIA : AGE: 54 MARITAL STATUS: M DC PLAN ID: [id number] FACILITY: [facility] PRINTED ON: 08/23/20 19:20 CT All edits/amendments must be made on the electronic document DICTATION DATE: 08/23/201919 PSYCHOLOGICAL AIDE: CHRISTIAN 08/23/201919 RPT#: [id number] DC DATE: STATUS: ADM IN [facility] [address] [place] [address] END OF REPORT
--- NOTE | 2020-08-23 20:30 | NUR ---
BEDSIDE SHIFT COMPLETED AT 1845, PT SITTING IN RECLINER TALKING ON PHONE. 02 VIA NC @2L. 22G R WRIST SL. PT DECLINED BATH TONIGHT, LINEN CHANGE PREFORMED, MASTER CARE AND BARRIER CREAM APPLIED TO MASTER CARE/COCCYX, PRESSURE ULCER HEALING, BLANCHABLE REDNESS, NO DRAINAGE, PINK WOUND BED WITH SKIN RESURFACING, INSTRUCTED PT ON FREQUENT REPOSTIONING IN RECLINER AND BED, AND WOUND CARE INSTRUCTIONS FOR POSSIBLE DISCHARGE SOON. PT REFUSES CASEY HOSE AND SCD'S TONIGHT, BLE SWOLLEN AND TENDER, PT WITH HISTORY OF FIBROMYALGIA AND COMPLAINT OF SKIN HURTING WITH PRESSURE AT THIS TIME, EDUCATED PT ON NEED FOR CASEY HOSE IN A.M. AND WITH AMBULATION. PT DECLINES COMPLAINTS OR UNMET NEEDS, CALL LIGHT AND PERSONAL BELONINGS WITHIN REACH. PRN NORCO GIVEN FOR PAIN PER PT REQUEST AND PRN ZOFRAN GIVEN FOR MILD NAUSEA.
--- NOTE | 2020-08-23 23:15 | NUR ---
ROUNDED ON PT WHEN HEARD MOANING AND GRUNTING, PT WITH GRIMACE, REPORTS PAIN IN BILAT LE, ACHING AND RESTLESSNESS. HX OF RESTLESS LEGS PER PT REPORT, BLE ASSESSED, CALFS APPEAR EQUAL SIZE AND NO HEAT FELT, PITTING EDEMA AND SKIN IS TIGHT. GAVE PRN NORCO AND ENCOURAGED PT TO DISCUSS WITH MD UPON ROUNDING IN A.M. ASSISTED PT TO BATHROOM AND BACK TO BED, CALL LIGHT AND PERSONAL ITEMS WITHIN REACH.
[2020-08-24] VITALS (16 sets, daily range): BP systolic 96–145; BP diastolic 41–443
--- NOTE | 2020-08-24 01:41 | NUR ---
ASSISTED PT TO BATHROOM, REPORTS LEG PAIN IS PERSISTANT BUT IMPROVED. OBTAINED GLUCOSE TO ASSESS FOR LOW BLOOD GLUCOSE WITH INCREASED DOSE SLIDING SCALE INSULIN, GLUCOSE IN 120'S. PT SITTING UP IN RECLINER, CALL LIGHT AND PERSONAL BELONGINGS WITHIN REACH.
[2020-08-24 02:20] LABS: BASOPHILS 0.2 % (0-2); EOSINOPHILS 4.3 % (0-7); HEMATOCRIT 28.1 % (36.0-48.0); HEMOGLOBIN 8.7 g/dL (12-16); IMMATURE GRANULOCYTES 4.6 % (0-5); LYMPHOCYTE ABS# 2.14 10x3/uL (1.18-3.74); LYMPHOCYTES 19.3 % (15-50); MCH 27.4 pg (26.0-34.0); MCV 88.4 fL (80.0-100.0); MEAN PLATELET VOLUME 10.3 fL (7.4-10.4); MONOCYTES 7.1 % (2-11); NEUTROPHIL ABS# 7.17 10x3/uL (1.56-6.13); NEUTROPHILS 64.5 % (40-80); PLATELET COUNT 254 10x3/uL (130-400); RBC 3.18 10x6/uL (4.00-5.40); RDW 15.9 % (11.5-14.5); WBC 11.1 10x3/uL (4.8-10.8)
[2020-08-24 02:39] LABS: ALBUMIN 2.6 g/dL (3.4-5.0); ANION GAP 9.2 mmol/L (8-16); BILIRUBIN - TOTAL 0.27 mg/dL (0.2-1.3); CALCIUM 8.7 mg/dL (8.5-10.1); CARBON DIOXIDE 29.8 mmol/L (21.0-32.0); CREATININE - SERUM 1.1 mg/dL (0.6-1.3); PROTEIN - SERUM 6.6 g/dL (6.4-8.2)
--- NOTE | 2020-08-24 05:00 | NUR ---
PT WOKE FEELING HOT, FINGERSTICK GLUCOSE RESULT 59, GAVE PT JUICE, CRACKERS AND JELLO, WILL RE-ASSESS. PT REPORTS RELIEF OF SYMPTOMS AFTER SNACK. CALL LIGHT WITHIN REACH.
--- NOTE | 2020-08-24 09:36 | NUR ---
REHAB PRESCREEN RECEIVED. UNFORTUNATELY THE PATIENT HAS MEDICAID AND WE ARE UNABLE TO TAKE MEDICAID PATIENTS. THANK YOU FOR THE REFERRAL. HAIM HERNANDEZ RN CLINICAL LIAISON, INPATIENT REHAB.
--- NOTE | 2020-08-24 12:51 | MORECARE ---
CASE MANAGEMENT DISCHARGE SUMMARY PATIENT: ELI ABRAHAM UNIT: [id number] ADM DATE: 08/10/20 AGE: 54 : 63 SEX: F ROOM/BED: [facility] AUTHOR: AIDAN,DOC PHYSICIAN: REFERRING PHYSICIAN: KEYON HUSSEIN MD DATE OF SERVICE: 08/24/20 Case Management Discharge Planning Summary COMMENTS ENTERED DATE: 08/24/20 12:42 CT COMMENT TYPE: Discharge Planning REVIEWER: Demetria Spivey CM called and spoke with Jimbo at [facility] about referral. Agency will admit patient on Monday. CM called and spoke with Raza at [facility] about O2 orders. CM faxed records as requested. Agency will deliver portable tank to CVICU and set up home O2 upon discharge today. CM informed patient. She verbalized understanding and satisfaction with discharge plans. States her ride will be here 16:00 today. Does not have other transportation available. CM informed nurse of above. ENTERED DATE: 08/23/20 19:12 CT COMMENT TYPE: Discharge Planning REVIEWER: Tana Petty CM met with patient at bedside and she stated that she lives at home with her and plans to return there upon discharge. Patient states that she has a nebulizer but doesn't have any home 02. Patient states that she has 7 steps to go up to get in her home. Patient states that they are planning to discharge her in am, but she wasn't able to walk in [place] yet d/t sob. Patient insurance doesn't cover rehab it will only cover home health with physical therapy. Patient signed LUZMA for any [employer] and [employer] company as needed. CM will continue to follow and assist as needed with discharge planning / needs. DCP REVIEW SUMMARY ANTICIPATED D/C DATE: EXPECTED LOS : CASE STATUS: DCP Initiated INITIAL REVIEW: 08/09/2020 INITIAL REVIEWER: Tana Petty FINAL DISCHARGE DISPOSITION: : FINAL REVIEWER: FINAL REVIEW DATE: DCP Focus Questions & Answers DCP Screen QUESTION: ANSWER High Risk Factors: : Decreased adherence to treatment plan DCP Evaluation QUESTION: ANSWER Patient and/or caregiver agree upon recommended discharge plan? : Yes Patient's current cognitive status: : *Oriented to person, place, situation, time and present Patient's ability to cope with chronic illness : d. No chronic illness Patient gives permission to discuss discharge plans with: (name, relationship and number) : GIANA ABRAHAM -SP- [phone] Does the patient have the ability to pay for or attain post discharge needs / services? : Yes Functional screen assessment: : Unable to manage ADLs without immediate ongoing assistance Equipment needed for post hospitalization: : Home Oxygen with Nasal Cannula Is there a likelihood that the patient will require additional services to return to the preadmission environment? : Yes Living Arrangements: : Home with Spouse/Significant Other Results of this evaluation have been discussed with: : Patient Baseline cognitive status: : *Oriented to person, place, situation, time and present Physical environment modification needed / anticipated for discharge: : No Comments: : Patient will need home/ portable 02 and HHS upon discharge Preadmission facility can/cannot provide post hospital level of care needs: : Cannot - at same level of care as preadmission Planned post hospital services available for patient? : Yes Pharmacy name(s): : [facility] Planned post hospital services covered by insurance plan? : Yes Does Patient have transportation to get home and to follow-up medical appointments when discharged from the hospital? : Yes Would patient like to participate in any Care Coordination programs (if applicable): : Not applicable Does the patient have electricity at home? : Yes Does the patient have running water in their house? : Yes Equipment in use: : Walker - Rolling Equipment in use: : Shower Chair Equipment in use: : Nebulizer Equipment in use: : Hospital Bed Equipment in use: : Cane - Quad Equipment in use: : Bedside Commode Mental health screen: : No mental health history Psychosocial status: : Adult with physical limitations DCP Re-evaluation QUESTION: ANSWER Would patient like to participate in any Care Coordination programs (if applicable): : Not applicable PATIENT: ELI ABRAHAM ENCOUNTER: [id number] MEDICAL RECORD#: [id number] ADMISSION DATE: 08/10/2020 DISCHARGE DATE: ATTENDING MD: KEYON GRACIA : AGE: 54 MARITAL STATUS: M DC PLAN ID: [id number] FACILITY: [facility] PRINTED ON: 08/24/20 12:50 CT All edits/amendments must be made on the electronic document DICTATION DATE: 08/24/201249 FIRE TRUCK DRIVER: CHRISTIAN 08/24/201249 [facility]#: [id number] DC DATE: STATUS: ADM IN [facility] [address] [place] [address] END OF REPORT
[2020-08-24] MEDS ORDERED: COREG 3.1253.125 MG PO (15:02)
[2020-08-24] MEDS ORDERED: AMIODARONE HCL200 MG PO (15:02)
[2020-08-24] MEDS ORDERED: MUCINEX DM ER1 EAC1 PO (15:03)
[2020-08-24] MEDS ORDERED: LANTUS SOL100 UNIT/2 SC (15:03)
--- NOTE | 2020-08-24 19:00 | NUR ---
BEDSIDE SHIFT REPORT COMPLETED, PT WITH 7.5 TRACH ON MECH VENT, SP02 92%, VS WNL. PEG TUBE WITH NEPRO @45ML/HR, 100ML GUERRERO RESIDUAL. PULSES RADIAL AND DORSAL PEDAL PULSES WEAK BUT PALPABLE BILAT. UPPER LUNG SOUNDS COURSE WITH WHEEZING, LOWER DIMINISHED, SUCTIONED ORAL AND TRACH. RECTAL TUBE IN PLACE. PT REPOSTIONED. NO ACUTE DISTRESS NOTED AT THIS TIME.
--- NOTE | 2020-08-24 22:21 | NUR ---
@2007 HR DECREASED IN 30'S AND SP02 DECREASED IN 70'S, RT CALLED, CARDIAC LEADS ASSESSED AND IN PLACE, FEMORAL PULSE THREADY, AT BEDSIDE, CODE BLUE CALLED @2009, ED MD DR MOORE ARRIVED AT 2011, PT PRIMARY DR HERNANDEZ ARRIVED @2015, COMPRESSIONS BEGAIN UPON LOSS OF PULSE, SEE MEDS GIVEN PER CODE SHEET, PT DAUGHTER ARRIVED PRIOR TO END OF CODE, PT DAUGHTER AND PT AGREED TO STOP CODE AFTER NO RETURN OF PULSE, TIME OF 2027. FAMILY GIVEN TIME WITH PT AFTER LOSS. FAMILY CHOSE [facility]. PT BELONGINGS SENT WITH PT DAUGHTER.
--- NOTE | 2020-08-25 07:55 | MORECARE ---
CASE MANAGEMENT DISCHARGE SUMMARY PATIENT: ELI ABRAHAM UNIT: [id number] ADM DATE: 08/10/20 AGE: 54 : 63 SEX: F ROOM/BED: [facility] AUTHOR: AIDAN,DOC PHYSICIAN: REFERRING PHYSICIAN: KEYON HUSSEIN MD DATE OF SERVICE: 08/25/20 Case Management Discharge Planning Summary COMMENTS ENTERED DATE: 08/24/20 12:42 CT COMMENT TYPE: Discharge Planning REVIEWER: Demetria Spivey CM called and spoke with Jimbo at [facility] about referral. Agency will admit patient on Monday. CM called and spoke with Raza at [facility] about O2 orders. CM faxed records as requested. Agency will deliver portable tank to CVICU and set up home O2 upon discharge today. CM informed patient. She verbalized understanding and satisfaction with discharge plans. States her ride will be here 16:00 today. Does not have other transportation available. CM informed nurse of above. ENTERED DATE: 08/23/20 19:12 CT COMMENT TYPE: Discharge Planning REVIEWER: Tana Petty CM met with patient at bedside and she stated that she lives at home with her and plans to return there upon discharge. Patient states that she has a nebulizer but doesn't have any home 02. Patient states that she has 7 steps to go up to get in her home. Patient states that they are planning to discharge her in am, but she wasn't able to walk in [place] yet d/t sob. Patient insurance doesn't cover rehab it will only cover home health with physical therapy. Patient signed LUZMA for any [employer] and [employer] company as needed. CM will continue to follow and assist as needed with discharge planning / needs. DCP REVIEW SUMMARY ANTICIPATED D/C DATE: EXPECTED LOS : CASE STATUS: DCP Initiated INITIAL REVIEW: 08/09/2020 INITIAL REVIEWER: Tana Petty FINAL DISCHARGE DISPOSITION: : FINAL REVIEWER: FINAL REVIEW DATE: DCP Focus Questions & Answers DCP Screen QUESTION: ANSWER High Risk Factors: : Decreased adherence to treatment plan DCP Evaluation QUESTION: ANSWER Patient and/or caregiver agree upon recommended discharge plan? : Yes Patient's current cognitive status: : *Oriented to person, place, situation, time and present Patient's ability to cope with chronic illness : d. No chronic illness Patient gives permission to discuss discharge plans with: (name, relationship and number) : GIANA ABRAHAM -SP- [phone] Does the patient have the ability to pay for or attain post discharge needs / services? : Yes Functional screen assessment: : Unable to manage ADLs without immediate ongoing assistance Equipment needed for post hospitalization: : Home Oxygen with Nasal Cannula Is there a likelihood that the patient will require additional services to return to the preadmission environment? : Yes Living Arrangements: : Home with Spouse/Significant Other Results of this evaluation have been discussed with: : Patient Baseline cognitive status: : *Oriented to person, place, situation, time and present Physical environment modification needed / anticipated for discharge: : No Comments: : Patient will need home/ portable 02 and HHS upon discharge Preadmission facility can/cannot provide post hospital level of care needs: : Cannot - at same level of care as preadmission Planned post hospital services available for patient? : Yes Pharmacy name(s): : [facility] Planned post hospital services covered by insurance plan? : Yes Does Patient have transportation to get home and to follow-up medical appointments when discharged from the hospital? : Yes Would patient like to participate in any Care Coordination programs (if applicable): : Not applicable Does the patient have electricity at home? : Yes Does the patient have running water in their house? : Yes Equipment in use: : Walker - Rolling Equipment in use: : Shower Chair Equipment in use: : Nebulizer Equipment in use: : Hospital Bed Equipment in use: : Cane - Quad Equipment in use: : Bedside Commode Mental health screen: : No mental health history Psychosocial status: : Adult with physical limitations DCP Re-evaluation QUESTION: ANSWER Would patient like to participate in any Care Coordination programs (if applicable): : Not applicable PATIENT: ELI ABRAHAM ENCOUNTER: [id number] MEDICAL RECORD#: [id number] ADMISSION DATE: 08/10/2020 DISCHARGE DATE: 08/24/2020 ATTENDING MD: KEYON GRACIA : AGE: 54 MARITAL STATUS: M DC PLAN ID: [id number] FACILITY: [facility] PRINTED ON: 08/25/20 7:55 CT All edits/amendments must be made on the electronic document DICTATION DATE: 08/25/20754 REVENUE CYCLE MANAGER: CHRISTIAN 08/25/20754 RPT#: [id number] DC DATE:08/24/20 STATUS: DIS IN [facility] [address] [place] [address] END OF REPORT
--- NOTE | 2020-08-25 14:55 | MORECARE ---
CASE MANAGEMENT DISCHARGE SUMMARY PATIENT: ELI ABRAHAM UNIT: [id number] ADM DATE: 08/10/20 AGE: 54 : 63 SEX: F ROOM/BED: [facility] AUTHOR: AIDAN,DOC PHYSICIAN: REFERRING PHYSICIAN: KEYON HUSSEIN MD DATE OF SERVICE: 08/25/20 Case Management Discharge Planning Summary COMMENTS ENTERED DATE: 08/24/20 12:42 CT COMMENT TYPE: Discharge Planning REVIEWER: Demetria Spivey CM called and spoke with Jimbo at [facility] about referral. Agency will admit patient on Monday. CM called and spoke with Raza at [facility] about O2 orders. CM faxed records as requested. Agency will deliver portable tank to CVICU and set up home O2 upon discharge today. CM informed patient. She verbalized understanding and satisfaction with discharge plans. States her ride will be here 16:00 today. Does not have other transportation available. CM informed nurse of above. ENTERED DATE: 08/23/20 19:12 CT COMMENT TYPE: Discharge Planning REVIEWER: Tana Petty CM met with patient at bedside and she stated that she lives at home with her and plans to return there upon discharge. Patient states that she has a nebulizer but doesn't have any home 02. Patient states that she has 7 steps to go up to get in her home. Patient states that they are planning to discharge her in am, but she wasn't able to walk in [place] yet d/t sob. Patient insurance doesn't cover rehab it will only cover home health with physical therapy. Patient signed LUZMA for any [employer] and [employer] company as needed. CM will continue to follow and assist as needed with discharge planning / needs. DCP REVIEW SUMMARY ANTICIPATED D/C DATE: EXPECTED LOS : CASE STATUS: DCP Initiated INITIAL REVIEW: 08/09/2020 INITIAL REVIEWER: Tana Petty FINAL DISCHARGE DISPOSITION: : FINAL REVIEWER: FINAL REVIEW DATE: DCP Focus Questions & Answers DCP Screen QUESTION: ANSWER High Risk Factors: : Decreased adherence to treatment plan DCP Evaluation QUESTION: ANSWER Patient and/or caregiver agree upon recommended discharge plan? : Yes Patient's current cognitive status: : *Oriented to person, place, situation, time and present Patient's ability to cope with chronic illness : d. No chronic illness Patient gives permission to discuss discharge plans with: (name, relationship and number) : GIANA ABRAHAM -SP- [phone] Does the patient have the ability to pay for or attain post discharge needs / services? : Yes Functional screen assessment: : Unable to manage ADLs without immediate ongoing assistance Equipment needed for post hospitalization: : Home Oxygen with Nasal Cannula Is there a likelihood that the patient will require additional services to return to the preadmission environment? : Yes Living Arrangements: : Home with Spouse/Significant Other Results of this evaluation have been discussed with: : Patient Baseline cognitive status: : *Oriented to person, place, situation, time and present Physical environment modification needed / anticipated for discharge: : No Comments: : Patient will need home/ portable 02 and HHS upon discharge Preadmission facility can/cannot provide post hospital level of care needs: : Cannot - at same level of care as preadmission Planned post hospital services available for patient? : Yes Pharmacy name(s): : [facility] Planned post hospital services covered by insurance plan? : Yes Does Patient have transportation to get home and to follow-up medical appointments when discharged from the hospital? : Yes Would patient like to participate in any Care Coordination programs (if applicable): : Not applicable Does the patient have electricity at home? : Yes Does the patient have running water in their house? : Yes Equipment in use: : Walker - Rolling Equipment in use: : Shower Chair Equipment in use: : Nebulizer Equipment in use: : Hospital Bed Equipment in use: : Cane - Quad Equipment in use: : Bedside Commode Mental health screen: : No mental health history Psychosocial status: : Adult with physical limitations DCP Re-evaluation QUESTION: ANSWER Would patient like to participate in any Care Coordination programs (if applicable): : Not applicable PATIENT: ELI ABRAHAM ENCOUNTER: [id number] MEDICAL RECORD#: [id number] ADMISSION DATE: 08/10/2020 DISCHARGE DATE: 08/24/2020 ATTENDING MD: KEYON GRACIA : AGE: 54 MARITAL STATUS: M DC PLAN ID: [id number] FACILITY: [facility] PRINTED ON: 08/25/20 14:55 CT All edits/amendments must be made on the electronic document DICTATION DATE: 08/25/201454 COAL INSPECTOR: CHRISTIAN 08/25/201454 RPT#: [id number] DC DATE:08/24/20 STATUS: DIS IN [facility] [address] [place] [address] END OF REPORT
== END 2020-08-24 16:33 | disposition home health service (06) | DRG 236 ==
LOC: D.ER 15:37 → D.M2 20:43 → OBSVTIME 20:44 → D.CVICU 08-10 16:30
PROVIDERS: Emergency Medicine; Family Medicine; Internal Medicine Pulmonary Disease; Thoracic Surgery (Cardiothoracic Vascular Surgery); ADMIT Emergency Medicine; ATTEND Emergency Medicine
PROC: 021109W Bypass Coronary Artery, Two Arteries from Aorta with Autologous Venous Tissue, Open Approach (ICD-10-PCS; 2020-08-13)
PROC: 06BP4ZZ Excision of Right Saphenous Vein, Percutaneous Endoscopic Approach (ICD-10-PCS; 2020-08-13)
PROC: 0210099 Bypass Coronary Artery, One Artery from Left Internal Mammary with Autologous Venous Tissue, Open Approach (ICD-10-PCS; principal; 2020-08-13 07:30)
DX: I25.110 Atherosclerotic heart disease of native coronary artery with unstable angina pectoris (principal); Z68.42 Body mass index [BMI] 45.0-49.9, adult; E87.2 Acidosis; E66.2 Morbid (severe) obesity with alveolar hypoventilation; E87.1 Hypo-osmolality and hyponatremia; E78.5 Hyperlipidemia, unspecified; I11.0 Hypertensive heart disease with heart failure; I50.9 Heart failure, unspecified; E11.40 Type 2 diabetes mellitus with diabetic neuropathy, unspecified; J44.9 Chronic obstructive pulmonary disease, unspecified; M19.90 Unspecified osteoarthritis, unspecified site; M79.7 Fibromyalgia; Z79.4 Long term (current) use of insulin; Z86.73 Personal history of transient ischemic attack (TIA), and cerebral infarction without residual deficits; E11.65 Type 2 diabetes mellitus with hyperglycemia; F41.8 Other specified anxiety disorders; G89.29 Other chronic pain; D69.6 Thrombocytopenia, unspecified; J20.9 Acute bronchitis, unspecified